=== PATIENT | female | born 1985 | race Caucasian/White ===

== ENCOUNTER → 2021-05-24 11:48 | Outpatient (CLI) | payer BC, SELFPAY ==
[2021-05-24 13:23] LABS: Add Manual Diff / Slide Review NO; Basophils Absolute Auto 100 /uL (0-100); Basophils Percent Auto 0.8 % (0-2); Eosinophils Absolute Auto 100 /uL (0-450); Hematocrit 41.2 % (36-46); Hemoglobin 14.2 g/dL (12.0-16.0); Lymphocytes Absolute Auto 2800 /uL (1100-4500); Lymphocytes Percent Auto 40.3 % (25-40); Mean Corpuscular HGB Conc 34.5 % (30-36); Mean Corpuscular Hemoglobin 30.6 PG (26-34); Mean Corpuscular Volume 88.6 fL (80-100); Monocytes Absolute Auto 600 /uL (0-900); Monocytes Percent Auto 8.2 % (3-14); Neutrophils Absolute Auto 3400 /uL (1500-7000); Neutrophils Percent Auto 48.7 % (50-75); Platelet Count 200 X10^3/uL (150-400); Red Blood Cell Count 4.65 X10^6/uL (4.0-5.2); Red Cell Distribution Width 12.9 % (11.6-14.8)
[2021-05-24 13:26] LABS: Alanine Aminotransferase 25 IU/L (<35); Albumin 4.3 g/dL (3.5-5.0); Albumin Globulin Ratio 1.5 (1.0-2.8); Alkaline Phosphatase 44 U/L (38-126); Aspartate Aminotransferase 29 IU/L (14-36); BUN Creatinine Ratio 11.9 (6-22); Bilirubin Total 0.5 mg/dL (0.2-1.3); Blood Urea Nitrogen 7 mg/dL (7-17); Calcium 9.5 mg/dL (8.4-10.2); Carbon Dioxide 23 mmol/L (22-32); Chloride 104 mmol/L (98-107); Estimated Glomerular Filt Rate > 60.0 mL/min (>60); Globulin 2.8 g/dL (1.7-4.1); Glucose 101 mg/dL (70-100); HEMOLYSIS < 15 (0-50); Potassium 3.8 mmol/L (3.4-5.1); Sodium 134 mmol/L (137-145); Total Protein 7.1 g/dL (6.3-8.2)
[2021-05-24 13:58] LABS: Thyroid Stimulating Hormone 1.81 uIU/mL (0.47-4.68)
== END ==
PROVIDERS: PCP Physician Assistant; Referring Provider Physician Assistant; Visit Provider Physician Assistant
DX: K21.9 Gastro-esophageal reflux disease without esophagitis (principal); G51.4 Facial myokymia; Z13.29 Encounter for screening for other suspected endocrine disorder
CPT/HCPCS: 36415; 80053; 84443; 85025

== ENCOUNTER → 2021-06-11 12:11 | Outpatient (CLI) | payer BC, SELFPAY ==
--- NOTE | 2021-06-11 12:12 | DI.US.S_ITS ---
PROCEDURE: US OB <= 14 WEEKS FETUS INDICATIONS: VIABILITY AND DATES OUTSIDE/PRIOR DATING DATA: Last menstrual period (LMP): Not stenosis LMP-based estimated date of delivery (CORDELL): Not applicable First dating scan (date and location): June 11, 2021 Estimated date of delivery (CORDELL) from first dating scan: January 27, 2022 The calculations are made using the ultrasound CORDELL of January 27, 2022. TECHNIQUE: Real-time scanning was performed of the fetus and maternal pelvic organs, with image documentation. Endovaginal scanning was also performed to better visualize the fetus and maternal ovaries. COMPARISON: None. FINDINGS: Embryo: Single living intrauterine identified. Yolk sac and pole are identified. [place]-rump length measures 1.0 centimeters corresponding to ultrasound estimated gestational age of 7 weeks 1 day. Gestational sac has mildly irregular contours possibly related to uterine contractions during image acquisition.. Heart rate: 136 beats per minute Maternal organs: Probable left ovary corpus luteal cyst. IMPRESSION: Single living intrauterine with ultrasound estimated gestational age of 7 weeks 1 day corresponding to ultrasound CORDELL of January 27, 2022. Dictated by: Mena Ji MD, PhD on 06/11/2021 at 14:49 Approved by: Mena Ji MD, PhD on 06/11/2021 at 15:31
== END ==
PROVIDERS: PCP Physician Assistant; Referring Provider Obstetrics & Gynecology; Visit Provider Obstetrics & Gynecology
DX: Z34.81 Encounter for supervision of other normal pregnancy, first trimester (principal); Z3A.01 Less than 8 weeks gestation of pregnancy
CPT/HCPCS: 76801; 76817

== ENCOUNTER → 2021-06-27 11:01 | Outpatient (CLI) | payer BC, SELFPAY ==
[2021-06-27 11:41] LABS: Add Manual Diff / Slide Review NO; Basophils Absolute Auto 0 /uL (0-100); Basophils Percent Auto 0.9 % (0-2); Eosinophils Absolute Auto 100 /uL (0-450); Hemoglobin 13.7 g/dL (12.0-16.0); Lymphocytes Absolute Auto 1400 /uL (1100-4500); Mean Corpuscular HGB Conc 35.2 % (30-36); Mean Corpuscular Hemoglobin 31.1 PG (26-34); Mean Corpuscular Volume 88.3 fL (80-100); Monocytes Absolute Auto 400 /uL (0-900); Monocytes Percent Auto 7.6 % (3-14); Neutrophils Absolute Auto 3800 /uL (1500-7000); Neutrophils Percent Auto 65.5 % (50-75); Platelet Count 179 X10^3/uL (150-400); Red Blood Cell Count 4.41 X10^6/uL (4.0-5.2); White Blood Cell Count 5.8 X10^3/uL (4.5-11.0)
[2021-06-27 12:22] LABS: Hepatitis B Surface Antigen NEGATIVE s/c (NEGATIVE); Rubella Antibody IgG 50.6 IU/mL (>15)
[2021-06-27 12:38] LABS: HIV 1 & 2 Ab/Ag 4th Gen Combo NEGATIVE (NEGATIVE); Hep C Virus Ab w/Reflex Quant NEGATIVE s/c (NEGATIVE)
[2021-06-27 16:06] LABS: Urine N gonorrhoeae NOT DETECTED
[2021-06-27 16:10] LABS: Urine Chlamydia NOT DETECTED
[2021-06-28 05:13] LABS: RPR Screen Non Reactive (Non Reactive); Toxoplasma gohndii IgG <3.0 IU/mL (0.0-7.1); Toxoplasma gondii IgM <3.0 AU/mL (0.0-7.9)
[2021-06-28 13:10] LABS: Varicella IgG Antibody 896 index (Immune >165)
== END ==
PROVIDERS: PCP Physician Assistant; Referring Provider Obstetrics & Gynecology; Visit Provider Obstetrics & Gynecology
DX: L08.9 Local infection of the skin and subcutaneous tissue, unspecified (principal); Z34.81 Encounter for supervision of other normal pregnancy, first trimester; Z34.80 Encounter for supervision of other normal pregnancy, unspecified trimester; Z3A.11 11 weeks gestation of pregnancy
CPT/HCPCS: 36415; 80055; 86777; 86778; 86787; 86803; 86850; 86900; 86901; 87389; 87491; 87591

== ENCOUNTER → 2021-07-25 17:07 | Outpatient (CLI) | payer BC, SELFPAY ==
[2021-07-25 18:47] LABS: Appearance Urine UA SL CLOUDY; Bilirubin Urine UA NEGATIVE (NEGATIVE); Color Urine UA YELLOW; Glucose Urine UA NEGATIVE (Negative); Ketones Urine UA NEGATIVE (NEGATIVE); Leukocyte Esterase Urine UA 3+ (NEGATIVE); Nitrite Urine UA NEGATIVE (Negative); Occult Blood Urine UA 1+ (Negative); Protein Urine UA NEGATIVE (Negative); Specific Gravity Urine UA <=1.005 (1.000-1.035); Urobilinogen Urine UA 0.2 E.U./dL (0.2)
[2021-07-25 19:02] LABS: Bacteria Urine Moderate (10-30); RBC Urine 1-5/HPF (0-5/HPF); Squamous Epithelial Cell Urine 5-10 /HPF (0-5/HPF); Transitional Epi Cells Urine 1-5/HPF (0-5/HPF); WBC Urine 30-100/HPF (0-5/HPF)
== END ==
PROVIDERS: PCP Physician Assistant; Visit Provider Obstetrics & Gynecology
DX: Z34.80 Encounter for supervision of other normal pregnancy, unspecified trimester (principal)
CPT/HCPCS: 81003; 81015; 87077; 87086; 87186

== ENCOUNTER → 2021-08-06 16:14 | Outpatient (CLI) | payer BC, SELFPAY ==
[2021-08-06 16:58] LABS: COVID19 -Nasal RAPID Negative (Negative)
== END ==
PROVIDERS: PCP Physician Assistant; Visit Provider Obstetrics & Gynecology
DX: Z20.822 Contact with and (suspected) exposure to COVID-19 (principal); Z01.812 Encounter for preprocedural laboratory examination
CPT/HCPCS: 87635

== ENCOUNTER 2021-08-07 14:02 | Day surgery (SDC) | payer BC, SELFPAY ==
--- NOTE | 2021-08-07 | PATH_ITS ---
[facility] Accession Number: [id number] . 01 Material submitted: . product of conception - PRODUCTS OF CONCEPTION . 01 Diagnosis: Products of Conception: Products of conception identified. Positive for p57 immunostaining. Ploidy studies pending to rule out molar gestation ([facility]); results will be reported as an addendum. V 08/13/2021 1449 Local . 01 Electronically signed: . Dara Arthur MD, Pathologist NPI- [id number] . 01 Gross description: . Received in a container of formalin labeled products of conception are multiple fragments of dark red decidua admixed with numerous fragments of spongy chorionic villi and admixed with cystic hydropic-appearing chorionic villi. The specimen measures 8.0 x 5.0 x 1.0 cm in aggregate dimension. No parts are grossly appreciated. Port Engineer sections of the hydropic-appearing villi are submitted in cassettes A1-A5. ([id number]) /[facility] 08/08/2021 1633 Local . 01 Microscopic: . An immunohistochemistry stain for p57 is performed to further evaluate the cells of interest, and is positive in cytotrophoblast cells and in nuclei of villous stromal cells. The control stain shows appropriate reactivity. . Block A4 p57: Positive . The differential diagnosis includes hydropic change and a partial molar gestation. Ploidy studies requested; results will be reported as an addendum. . * This test was developed and its performance characteristics determined by [facility]. It has not been cleared or approved by the U.S. Food and Drug Administration. The FDA has determined that such clearance or approval is not necessary. This test is used for clinical purposes. It should not be regarded as investigational or for research. . 01 Pathologist provided ICD-10: O02.1 . 01 CPT . 837237, I85383 Specimen Comment: A courtesy copy of this report has been sent to [phone] Performed at: [facility] [address] [place] [address], [place], [place] [id number] MD Richard Hebert MD Phone: [phone]
[2021-08-07 14:32] VITALS: BP 111/72; PULSE 100; RESP 16; TEMP 36.6; O2SAT 100
[2021-08-07 14:33] VITALS: BMI 24.1
[2021-08-07] MEDS: ACETAMINOPHEN 325 MG TABLET 975 MG PO (14:41)
[2021-08-07] MEDS: LACTATED RINGERS 1,000 ML 42 ML IV (15:09)
--- NOTE | 2021-08-07 15:32 | PM.GYNHP.1 ---
History of Present Illness History of Present Illness Reason for admission: missed Narrative: Krysta Deleon is a 36 year old CORDELL 01[birth year]22 who on her initial OB visit on 07/25/2021 was found to have a missed AB with the non-viable embryo c/w 8 weeks EGA. After consideration of all options, the patient has opted for suction curettage to remove POC. She is admitted for the procedure at this time. BT O+. [facility] Medical History Abnormal Pap smear of cervix (~2019) Acne (~2006) Bacterial vaginosis Chicken pox (~1994) Eczema (~2006) Gastric ulcer (~1987) GERD (gastroesophageal reflux disease) (~1987) Human papilloma virus (HPV) DNA test negative Irregular menstrual cycle (~1999) Ovarian cyst (~2014) Surgical History Anesthesia History of breast augmentation (~2006) History of rhinoplasty (~2007) History of tonsillectomy (~1990) Family History (Updated 06/09/21 @ 22:21 by Anju Jauregui) Father Leukemia Prostate cancer Hyperlipidemia Mental health problem Mother Melanoma Cancer Sister Thyroid disorder Grandfather History of quadriplegia Grandmother Alzheimer's disease Grandmother History of heart disease Social History marital status: number of children: 1 household members: spouse and children lives independently: Yes housing: house pets and animals: Yes (Dogs, aware of Toxoplasmosis) education level: college occupational status: employed current occupational exposures/hazards: No special vlad needs: No seatbelt use: always water heater temp set < 120 deg: Yes (will check) working smoke detector in home: Yes fire extinguisher in home: Yes carbon monox detector in home: Yes firearms in home: Yes firearms unloaded and locked: Yes do you feel safe at home: Yes Smoking Status: Former smoker second hand exposure: No alcohol intake: former substance use type: does not use during the past year weight has: decreased > 10 lbs well-balanced diet: daily or most days daily servings fruits/ve-4 caffeine: Yes (200mg daily) Type(s) of exercise: walking Meds Home Medications and Allergies Home Medications Medication Instructions Recorded Confirmed Type azelaic acid 15 % topical gel 1 applic TOPICAL BID 05/14/21 08/07/21 History Allergies Allergy/AdvReac Type Severity Reaction Status Date / Time amoxicillin Allergy Mild Verified 08/07/21 14:28 Sulfa (Sulfonamide Allergy Mild Verified 08/07/21 14:28 Antibiotics) Review of Systems Review of Systems Narrative: Problem-specific ROS positives included in HPI Exam Vital Signs (past 8 hours): - 08/07/21 14:32 Temperature 98 F Pulse Rate 100 H Respiratory Rate 16 Blood Pressure 111/72 Pulse Oximetry 100 Oxygen Delivery Method Room Air Const General: cooperative, comfortable and well developed Nutritional Appearance: average body habitus Orientation: alert and oriented x3 HENMT Head: normal to inspection Ears: hearing grossly normal bilaterally Face and sinus: face symmetric Eyes General: appearance normal, both eyes and all related structures Conjunctivae: conjunctivae normal Sclera: sclerae normal EOM: EOM intact bilaterally Neck Neck: normal visual inspection Resp Effort & Inspection: normal respiratory effort and able to speak in complete sentences Auscultation: clear to auscultation bilaterally Cardio Rate: regular rate Rhythm: regular rhythm Heart Sounds: S1 normal, S2 normal and no murmurs GI Inspection: normal to inspection Palpation: soft, no hepatosplenomegaly and No mass External Female Exam: normal external appearance Speculum Exam - Vagina: normal appearance of the vagina and normal vaginal discharge Speculum Exam - Cervix: normal appearance of the cervix and cervical os open Bimanual Exam- Vagina & Uterus: non-tender, enlarged (12 wks) and soft Bimanual Exam- Adnexa, other: normal adnexae and no masses OB/External & Speculum: cervical os open Extrem General: no calf tenderness Psych Appearance: grossly normal Mental Status: mental status grossly normal Speech and Movement: speech and movement normal Mood: congruent mood Affect: normal affect Attitude: cooperative Thought Process: normal Thought Content: normal Judgment: judgment good Assessment & Plan Assessment and plan (1) Missed with demise before 20 completed weeks of gestation: Status: Acute Plan Patient counselled re: alternatives, risks, benefits, and potential complications associated with suction curettage of the uterus. Will full understanding of the above, a written consent was executed, signed, and witnessed this date. Time Spent With Patient Time with patient: less than 30 minutes Critical Care time: I spent a total of [] minutes of critical care time on this patient's care today; this time is exclusive of procedural time.
--- NOTE | 2021-08-07 15:42 | PM.PREOP ---
Pre-operative Note COVID-19 COVID-19 status: Negative Result date/Date tested (Pos, Neg/Pending): 08/06/21 Criteria for continued procedure: Non-surgical alternatives not available or appropriate per current SOC Interval Note History & Physical reviewed/Exam performed by Physician: Yes Changes to H&P: No
--- NOTE | 2021-08-07 16:42 | SUR.OPER ---
Lithotomy on padded OR bed, head on pillow, arms secured on padded arm boards at <90 degrees abduction. Legs secured in padded yellow fins stirrups.
[2021-08-07 17:00] VITALS: BP 115/68; PULSE 78; RESP 13; TEMP 36.7; O2SAT 100
--- NOTE | 2021-08-07 17:00 | P.OP_ITS ---
Operative Date/Time/Diagnoses Date of procedure: 08/07/21 Time of procedure: 16:25 Pre-op diagnosis: Missed Post-op diagnosis: same Procedure & Clinicians Procedure: Procedures Operation Date: 08/07/21 15:30 Actual Procedure Side Surgeon p Dilation and Suction Curettage of uterus Nasim Mathias MD Indications: Krysta Deleon is a 36 year old CORDELL 01/27/[birth year]22 who on her initial OB visit on 07/25/2021 was found to have a missed AB with the non-viable embryo c/w 8 weeks EGA.? After consideration of all options, the patient has opted for suction curettage to remove POC. She is admitted for the procedure at this time.? BT O+. Surgeon: Nasim Mathias Anesthesia Type: General Operative Notes Findings: Pre-evacuation the uterus is approximately 10 weeks in size and post evacuation the uterus is 6-8 weeks in size. Abundant products of conception were removed from the uterine cavity. Closure Type: not applicable Specimen(s): products of conception Estimated blood loss (mL): 25 Blood products transfused: none Procedure in detail: With the patient under satisfactory general endotracheal anesthesia in the modified dorsal lithotomy position, the pelvis, perineum, and lower abdomen were prepped and draped in the usual fashion for D&C. A pre-surgical safety time-out was then taken in accordance with [facility] Main OR protocols. A bivalve speculum was inserted in the vagina and the cervix visualized. The anterior lip of the cervix was grasped with a single-tooth tenaculum and the endocervical canal was sequentially dilated to 10 mm. A 9 mm curved suction curette was then introduced into the endometrial cavity and suction applied. Several passes with the suction curette were required for complete evacuation of the uterus and prior to initiating the curettage itself, the patient received 10 units of Pitoc in IM along with Methergine 0.2 mg IM. Once complete evacuation of the uterine cavity was assured, the tenaculum was removed from the anterior lip of the cervix and the puncture site on the left required placement of a Allis clamp for 90 seconds to render the site completely hemostatic. At that point the speculum was removed from the vagina and the procedure terminated. The patient was then awakened from anesthesia and transferred to the PACU for a period of observation and recovery having tolerated the procedure well. Complications: none Post-operative Condition: stable Disposition: PACU Plan for aftercare: Routine postoperative care with follow-up scheduled for 2 weeks postop.
[2021-08-07 17:05] VITALS: BP 113/66; PULSE 89; RESP 15; O2SAT 100
[2021-08-07 17:10] VITALS: BP 115/64; PULSE 78; RESP 14; TEMP 36.7; O2SAT 100
[2021-08-07] MEDS: OXYCODONE IR 5 MG TABLET PO (17:22)
[2021-08-07 17:25] VITALS: BP 112/67; PULSE 75; RESP 16; O2SAT 100
[2021-08-07 17:35] VITALS: BP 116/68; PULSE 79; RESP 14; TEMP 37; O2SAT 100
== END 2021-08-07 17:53 | disposition home or self-care (01) ==
PROVIDERS: PCP Physician Assistant; Referring Provider Obstetrics & Gynecology; Visit Provider Obstetrics & Gynecology
PROC: (CPT 58120; principal; 2021-08-07 15:30)
DX: O02.1 Missed abortion (principal); Z3A.08 8 weeks gestation of pregnancy; K21.9 Gastro-esophageal reflux disease without esophagitis; E66.3 Overweight; Z68.24 Body mass index [BMI] 24.0-24.9, adult
CPT/HCPCS: 59820; J0330; J1100; J2210; J2250; J2405; J2590; J2704; J3010

== ENCOUNTER → 2021-08-26 10:06 | Outpatient (CLI) | payer BC, SELFPAY ==
[2021-08-26 13:05] LABS: HCG Quantitative /Beta subunit 16.3 mIU/mL
== END ==
PROVIDERS: PCP Physician Assistant; Referring Provider Obstetrics & Gynecology; Visit Provider Obstetrics & Gynecology
DX: O08.89 Other complications following an ectopic and molar pregnancy (principal)
CPT/HCPCS: 36415; 84702

== ENCOUNTER → 2021-09-02 17:39 | Outpatient (CLI) | payer BC, SELFPAY ==
[2021-09-02 18:28] LABS: HCG Quantitative /Beta subunit 7.8 mIU/mL
== END ==
PROVIDERS: PCP Physician Assistant; Referring Provider Obstetrics & Gynecology; Visit Provider Obstetrics & Gynecology
DX: O08.89 Other complications following an ectopic and molar pregnancy (principal)
CPT/HCPCS: 36415; 84702

== ENCOUNTER → 2021-09-16 17:33 | Outpatient (CLI) | payer BC, SELFPAY ==
[2021-09-16 18:23] LABS: HCG Quantitative /Beta subunit < 2.4 mIU/mL
== END ==
PROVIDERS: PCP Physician Assistant; Referring Provider Obstetrics & Gynecology; Visit Provider Obstetrics & Gynecology
DX: O08.89 Other complications following an ectopic and molar pregnancy (principal)
CPT/HCPCS: 36415; 84702

== ENCOUNTER → 2021-10-21 17:29 | Outpatient (CLI) | payer BC, SELFPAY ==
[2021-10-21 18:43] LABS: HCG Quantitative /Beta subunit < 2.4 mIU/mL
== END ==
PROVIDERS: PCP Physician Assistant; Referring Provider Obstetrics & Gynecology; Visit Provider Obstetrics & Gynecology
DX: O08.89 Other complications following an ectopic and molar pregnancy (principal)
CPT/HCPCS: 36415; 84702

== ENCOUNTER → 2021-12-16 06:59 | Outpatient (CLI) | payer BC, SELFPAY ==
--- NOTE | 2021-12-16 07:00 | DI.US.S_ITS ---
PROCEDURE: US PELVIC COMPLETE INDICATIONS: BLEEDING POST D C FOR MOLAR 07/2021 TECHNIQUE: Real-time scanning was performed of the pelvic organs, with image documentation. Additional endovaginal scanning was necessary due to incomplete visualization of the adnexal and endometrial structures by transabdominal scanning. COMPARISON: [facility], US, PELVIC COMPLETE, 04/13/2014, 12:44. FINDINGS: Uterus: Uterus is anteverted and normal in size at 6.4 x 4.9 x 3.8 cm. The myometrium is homogeneous. No discrete uterine fibroid is seen. The endometrium measures 6.9 mm combined thickness. Multiple anechoic cystic areas are noted within endometrium measures up to 4 x 3 x 2 mm in size. No gross solid appearing endometrial mass. Possible nabothian cyst containing internal punctate calcifications is noted within endocervical canal and measures 1.1 x 0.6 x 0.3 cm in size. Ovaries: The right ovary measures 2.8 x 1.2 x 1.2 cm, with a calculated ovarian volume of 2.1 cc. The left ovary measures 4.3 x 2.9 x 2.3 cm, with a calculated ovarian volume of 15.2 cc. The ovaries have a normal sonographic appearance. Thick walled hypoechoic structure is noted within left ovary and measures 3.2 x 2.2 x 2 cm in size with low level internal echo. No internal vascularity is seen. No adnexal masses are seen. Other: Physiologic amount of fluid is seen in lower pelvis. IMPRESSION: 1. Homogeneous myometrium. No discrete uterine fibroid. 2. Multiple tiny cystic areas are noted in the endometrium. No solid appearing endometrial mass. Jukebox Coin Collector correlation and sonographic follow-up in 4-6 weeks is recommended. 3. Possible 1.1 x 0.6 x 0.3 cm nabothian cyst within endocervical canal containing internal punctate calcifications. 4. Possible collapsing hemorrhagic cyst in left ovary measures 3.2 x 2.2 x 2 cm in size. No gross solid appearing ovarian lesion. Physiologic amount of free fluid seen in lower pelvis. We strive to produce accurate, complete, and clear reports of imaging services. To assist us in improving patient care, this report was composed using standard report templates and voice recognition software. Therefore, it may contain abnormal punctuation, insertions and/or omissions. Occasional wrong-word or sound-alike substitutions may occur. Though we review the report and make efforts to correct it, we do recommend that the report be read carefully in proper context to recognize any text inaccuracies. Dictated by: Bj Abreu M.D. on 12/16/2021 at 8:25 Approved by: Bj Abreu M.D. on 12/16/2021 at 8:31
[2021-12-16 08:42] LABS: HCG Quantitative /Beta subunit < 2.4 mIU/mL
== END ==
PROVIDERS: PCP Physician Assistant; Referring Provider Obstetrics & Gynecology; Visit Provider Obstetrics & Gynecology
DX: O02.0 Blighted ovum and nonhydatidiform mole (principal); O08.1 Delayed or excessive hemorrhage following ectopic and molar pregnancy
CPT/HCPCS: 36415; 76830; 76856; 84702

== ENCOUNTER → 2022-02-03 17:39 | Outpatient (CLI) | payer BC, SELFPAY ==
[2022-02-03 18:29] LABS: HCG Quantitative /Beta subunit < 2.4 mIU/mL
== END ==
PROVIDERS: PCP Physician Assistant; Referring Provider Obstetrics & Gynecology; Visit Provider Obstetrics & Gynecology
DX: O08.89 Other complications following an ectopic and molar pregnancy (principal)
CPT/HCPCS: 36415; 84702

== ENCOUNTER → 2022-03-04 09:42 | Outpatient (CLI) | payer BC, SELFPAY ==
[2022-03-04 11:30] LABS: Free T4, Direct Thyroxine 1.01 ng/dL (0.78-2.19); T4 Total Thyroxine 7.25 ug/dL (5.5-11.0)
[2022-03-04 11:44] LABS: Thyroid Stimulating Hormone 2.25 uIU/mL (0.47-4.68)
== END ==
PROVIDERS: PCP Physician Assistant; Referring Provider Obstetrics & Gynecology; Visit Provider Obstetrics & Gynecology
DX: N92.3 Ovulation bleeding (principal)
CPT/HCPCS: 36415; 84436; 84439; 84443

== ENCOUNTER → 2022-03-11 14:06 | Outpatient (CLI) | payer BC, SELFPAY ==
[2022-03-11 16:28] LABS: COVID19 -Nasal RAPID Negative (Negative)
== END ==
PROVIDERS: PCP Physician Assistant; Visit Provider Obstetrics & Gynecology
DX: Z01.812 Encounter for preprocedural laboratory examination (principal); Z20.822 Contact with and (suspected) exposure to COVID-19
CPT/HCPCS: 87635

== ENCOUNTER 2022-03-12 12:22 | Day surgery (SDC) | payer BC, SELFPAY ==
[2022-03-11 08:40] VITALS: BMI 22.9
[2022-03-12] VITALS (7 sets, daily range): BP systolic 107–123; BP diastolic 64–78; PULSE 75–106; RESP 13–18; TEMP 36.3–36.6; O2SAT 98–100; BMI 22.4
--- NOTE | 2022-03-12 | PATH_ITS ---
[facility] Accession Number: [id number] No. of containers..02 Tissue . 01 Material submitted: . PART A: endometrium - ENDOMETRIAL POLYP PART B: endocervix - ENDOCERVICAL POLYP . 01 Diagnosis: A. Designated As Endometrial Polyp, Biopsy: Few polypoid fragments of late secretory phase endometrium. No evidence of endometrioid intraepithelial neoplasia or malignancy. Minute fragments of benign endocervical epithelium and benign squamous epithelium. . B. Designated As Endocervical Polyp, Biopsy: Late secretory phase endometrium in association with endometrial polyp. No evidence of endometrioid intraepithelial neoplasia or malignancy. MRV 03/24/2022 1337 Local . 01 Electronically signed: . Sophia Aldana MD, Pathologist NPI- [id number] . 01 Gross description: . Part A: ENDOMETRIAL POLYP: Received in formalin are 2 fragment(s) of ferrari, soft tissue measuring 0.2 x 0.1 x 0.1 cm to 0.4 x 0.3 x 0.3 cm submitted entirely in 1 cassette(s) Part B: ENDOCERVICAL POLYP: Received in formalin is 1 fragment(s) of ferrari, soft tissue measuring 0.8 x 0.5 x 0.1 cm submitted entirely in 1 cassette(s) /ANJALI 03/24/2022 1335 Local . 01 Pathologist provided ICD-10: N84.0 . 01 CPT . 977588, [id number] Performed at: 01 [facility] [address] [place] [id number] MD Richard Hebert MD Phone: [phone]
[2022-03-12] MEDS: LACTATED RINGERS 1,000 ML 42 ML IV ×2 (13:05→14:23)
--- NOTE | 2022-03-12 13:32 | SUR.OPER ---
Patients bilateral earrings removed by patient and placed in specimen container with patient label and placed in patients belongings bag by pre-op RN.
--- NOTE | 2022-03-12 13:44 | PM.PREOP ---
Pre-operative Note COVID-19 COVID-19 status: Negative Result date/Date tested (Pos, Neg/Pending): 03/11/22 Criteria for continued procedure: Non-surgical alternatives not available or appropriate per current SOC Interval Note History & Physical reviewed/Exam performed by Physician: Yes Changes to H&P: No
--- NOTE | 2022-03-12 14:07 | SUR.OPER ---
Lithotomy on padded OR bed, head on pillow, arms secured on padded arm boards at <90 degrees abduction. Legs secured in padded yellow fins stirrups.
[2022-03-12] MEDS: SILVER NITRATE STICK 2 EACH TOP (14:26)
[2022-03-12] MEDS: ONDANSETRON 4 MG/2 ML INJ IV (14:48)
--- NOTE | 2022-03-12 14:49 | PM.GYNOP.1 ---
Operative Date/Time/Diagnoses Date of procedure: 03/12/22 Time of procedure: 14:00 Pre-op diagnosis: Intermenstrual spotting Post-op diagnosis: other (PILAR; endometrial polyp, endocervical polyp) Procedure & Clinicians Procedure: Procedures Operation Date: 03/12/22 13:30 Actual Procedure Side Surgeon p Hysteroscopy W/ polypectomy Not Applicable Nasim Mathias MD Indications: Krysta has experienced recent onset of premenstrual spotting which occurs 4-5 days prior to her regular menses.? The spotting is very light and typically dark brown with occasional light reddish discharge.? Her most recent hCG performed 12/16/2021 is negative (<2.4).? Patient denies significant pain or cramping with these episodes.? Recent pelvic ultrasound performed 12/16/2021 shows: FINDINGS:? ?? Uterus:? Uterus is anteverted and normal in size at 6.4 x 4.9 x 3.8 cm. The myometrium is homogeneous.? No discrete uterine fibroid is seen.? The endometrium measures 6.9 mm combined thickness.? Multiple anechoic cystic areas are noted within endometrium measures up to 4 x 3 x 2 mm in size.? No gross solid appearing endometrial mass.? Possible nabothian cyst containing internal punctate calcifications is noted within endocervical canal and measures 1.1 x 0.6 x 0.3 cm in size. ? Ovaries:? The right ovary measures 2.8 x 1.2 x 1.2 cm, with a calculated ovarian volume of 2.1 cc. The left ovary measures 4.3 x 2.9 x 2.3 cm, with a calculated ovarian volume of 15.2 cc. The ovaries have a normal sonographic appearance.? Thick walled hypoechoic structure is noted within left ovary and measures 3.2 x 2.2 x 2 cm in size with low level internal echo.? No internal vascularity is seen.? No adnexal masses are seen. ? Other:? Physiologic amount of fluid is seen in lower pelvis. ? ? IMPRESSION:? 1. Homogeneous myometrium.? No discrete uterine fibroid. 2. Multiple tiny cystic areas are noted in the endometrium.? No solid appearing endometrial mass.? Building Construction Ironworker correlation and sonographic follow-up in 4-6 weeks is recommended. 3. Possible 1.1 x 0.6 x 0.3 cm nabothian cyst within endocervical canal containing internal punctate calcifications. 4. Possible collapsing hemorrhagic cyst in left ovary measures 3.2 x 2.2 x 2 cm in size.? No gross solid appearing ovarian lesion.? Physiologic amount of free fluid seen in lower pelvis. After considering all options for further evaluation/treatment of her intermenstrual spotting, the patient has opted to proceed with hysteroscopy with possible biopsies and D&C to fully evaluate the endometrial cavity.? She presents today for her scheduled surgery. Surgeon: Nasim Mathias Anesthesia Type: General Operative Notes Findings: There is a small polyp present at the right tubal ostia but otherwise the endometrial cavity is unremarkable. The endometrium itself is thin but unremarkable. There is also a small endocervical polyp which was also removed during the course of the surgery. On the anterior lip of the cervix there are 3 punctate blood vessels which bleed easily and were coagulated with judicious use of monopolar current. Closure Type: not applicable Specimen(s): other (Endometrial polyp, endocervical polyp) Estimated blood loss (mL): 25 Blood products transfused: none Procedure in detail: With the patient under satisfactory general anesthesia in the modified dorsal lithotomy position, the perineum, vagina, and lower abdomen were prepped and draped in the usual manner for hysteroscopy. A pre-surgical safety time-out was then taken in accordance with [facility] [place] protocols. A bivalve speculum was inserted in the vagina and the anterior lip of the cervix was grasped with a single-tooth tenaculum. The endocervical canal was then sequentially dilated to 8 mm with Hegar dilators. Hysteroscope was introduced into the endometrial cavity and using saline as a distention medium, the endocervical canal and endometrial cavity were thoroughly inspected with the findings as noted above. The endocervical polyp was grasped with a Alvaro stone forceps, removed, and submitted as a pathologic specimen. The small polyp at the right tubal ostia was also grasped with a Alvaro stone forceps and removed and submitted as a pathologic specimen. With the removal of 2 polyps, there were no other abnormalities noted and as per the patient request no curettage was performed due to her concern over possible synechiae following the curettage. The punctate vessels on the anterior lip of the cervix were then coagulated with monopolar current and the puncture sites of the tenaculum rendered hemostatic with silver nitrate. Once complete hemostasis was assured, the speculum was removed from the vagina and the patient awakened from anesthesia. She was then transferred to the PACU for a period of observation and recovery after having tolerated procedure well. Complications: none Post-operative Condition: stable Disposition: PACU Plan for aftercare: Routine postoperative care and postop follow-up in 2 weeks
== END 2022-03-12 15:52 | disposition home or self-care (01) ==
PROVIDERS: PCP Physician Assistant; Referring Provider Obstetrics & Gynecology; Visit Provider Obstetrics & Gynecology
PROC: 0UDB8ZZ Extraction of Endometrium, Via Natural or Artificial Opening Endoscopic (ICD-10-PCS; CPT 58558; principal; 2022-03-12 13:30)
DX: N84.0 Polyp of corpus uteri (principal)
CPT/HCPCS: 58558; 81025; J1100; J2250; J2405; J2704; J3010

== ENCOUNTER → 2022-09-23 17:02 | Outpatient (CLI) | payer BC, SELFPAY ==
[2022-09-23 19:03] LABS: HCG Quantitative /Beta subunit 5089.8 mIU/mL
== END ==
PROVIDERS: PCP Physician Assistant; Referring Provider Obstetrics & Gynecology; Visit Provider Obstetrics & Gynecology
DX: Z34.81 Encounter for supervision of other normal pregnancy, first trimester (principal)
CPT/HCPCS: 36415; 84144; 84702

== ENCOUNTER → 2022-09-25 16:57 | Outpatient (CLI) | payer BC, SELFPAY ==
[2022-09-25 18:19] LABS: HCG Quantitative /Beta subunit 12554 mIU/mL
== END ==
PROVIDERS: PCP Physician Assistant; Referring Provider Obstetrics & Gynecology; Visit Provider Obstetrics & Gynecology
DX: Z34.90 Encounter for supervision of normal pregnancy, unspecified, unspecified trimester (principal)
CPT/HCPCS: 36415; 84702

== ENCOUNTER → 2022-10-05 16:59 | Outpatient (CLI) | payer BC, SELFPAY ==
[2022-10-05 18:47] LABS: HCG Quantitative /Beta subunit 94303 mIU/mL
== END ==
PROVIDERS: PCP Physician Assistant; Referring Provider Obstetrics & Gynecology; Visit Provider Obstetrics & Gynecology
DX: O20.9 Hemorrhage in early pregnancy, unspecified (principal); Z3A.00 Weeks of gestation of pregnancy not specified
CPT/HCPCS: 36415; 84702

== ENCOUNTER → 2022-10-07 12:14 | Outpatient (CLI) | payer BC, SELFPAY ==
--- NOTE | 2022-10-07 12:15 | DI.US.S_ITS ---
PROCEDURE: US OB <= 14 WEEKS FETUS INDICATIONS: BLEEDING OUTSIDE/PRIOR DATING DATA: Last menstrual period (LMP): 08/21/2022. LMP-based estimated date of delivery (CORDELL): 06/07/2023. First dating scan (date and location): 10/07/2022. Estimated date of delivery (CORDELL) from first dating scan: 05/28/2023. TECHNIQUE: Real-time scanning was performed of the fetus and maternal pelvic organs, with image documentation. COMPARISON: [facility], US, US OB <= 14 WEEKS FETUS, 07/25/2021, 17:33. FINDINGS: Embryo: Single live intrauterine is identified with crown-rump length measuring 0.8 cm corresponding to 6 weeks 5 days. Heart rate: 131 beats per minute Maternal organs: Ovaries demonstrate a left corpus luteal cyst. IMPRESSION: Single live intrauterine measuring 6 weeks 5 days. Recommend follow-up imaging at 20-22 weeks for dates and anatomy. We strive to produce accurate, complete, and clear reports of imaging services. To assist us in improving patient care, this report was composed using standard report templates and voice recognition software. Therefore, it may contain abnormal punctuation, insertions and/or omissions. Occasional wrong-word or sound-alike substitutions may occur. Though we review the report and make efforts to correct it, we do recommend that the report be read carefully in proper context to recognize any text inaccuracies. Dictated by: Farnaz Padilla M.D. on 10/07/2022 at 13:25 Approved by: Farnaz Padilla M.D. on 10/07/2022 at 13:26
== END ==
PROVIDERS: PCP Physician Assistant; Referring Provider Obstetrics & Gynecology; Visit Provider Obstetrics & Gynecology
DX: O20.9 Hemorrhage in early pregnancy, unspecified (principal); Z3A.01 Less than 8 weeks gestation of pregnancy
CPT/HCPCS: 76801; 76817

== ENCOUNTER → 2022-11-06 16:22 | Outpatient (CLI) | payer BC, SELFPAY ==
[2022-11-06 16:38] LABS: Specimen Label NATERA
== END ==
PROVIDERS: PCP Physician Assistant; Referring Provider Obstetrics & Gynecology; Visit Provider Obstetrics & Gynecology
DX: Z34.81 Encounter for supervision of other normal pregnancy, first trimester (principal)
CPT/HCPCS: 36415

== ENCOUNTER → 2022-11-25 16:34 | Outpatient (CLI) | payer BC, SELFPAY ==
[2022-11-25 17:28] LABS: Add Manual Diff / Slide Review NO; Basophils Absolute Auto 100 /uL (0-100); Basophils Percent Auto 0.7 % (0-2); Eosinophils Absolute Auto 100 /uL (0-450); Hematocrit 34.4 % (36-46); Hemoglobin 12.3 g/dL (12.0-16.0); Lymphocytes Absolute Auto 1500 /uL (1100-4500); Lymphocytes Percent Auto 22.6 % (25-40); Mean Corpuscular HGB Conc 35.9 % (30-36); Mean Corpuscular Hemoglobin 31.6 PG (26-34); Mean Corpuscular Volume 88.2 fL (80-100); Monocytes Absolute Auto 400 /uL (0-900); Monocytes Percent Auto 5.6 % (3-14); Neutrophils Absolute Auto 4700 /uL (1500-7000); Neutrophils Percent Auto 69.1 % (50-75); Platelet Count 193 X10^3/uL (150-400); Red Cell Distribution Width 13.7 % (11.6-14.8); White Blood Cell Count 6.8 X10^3/uL (4.5-11.0)
[2022-11-25 20:49] LABS: Urine N gonorrhoeae NOT DETECTED
[2022-11-25 20:53] LABS: Urine Chlamydia NOT DETECTED
[2022-11-26 07:12] LABS: RPR Screen Non Reactive (Non Reactive)
[2022-11-26 09:06] LABS: Varicella IgG Antibody 950 index (Immune >165)
[2022-11-26 12:16] LABS: Hepatitis B Surface Antigen NEGATIVE s/c (NEGATIVE); Rubella Antibody IgG 45.1 IU/mL (>15)
[2022-11-26 12:31] LABS: HIV 1 & 2 Ab/Ag 4th Gen Combo NEGATIVE (NEGATIVE); Hep C Virus Ab w/Reflex Quant NEGATIVE s/c (NEGATIVE)
== END ==
PROVIDERS: Specialist; PCP Physician Assistant; Referring Provider Obstetrics & Gynecology; Visit Provider Obstetrics & Gynecology
DX: Z34.81 Encounter for supervision of other normal pregnancy, first trimester (principal); Z3A.13 13 weeks gestation of pregnancy
CPT/HCPCS: 36415; 80055; 86787; 86803; 86850; 86900; 86901; 87389; 87491; 87591

== ENCOUNTER → 2023-01-08 07:55 | Outpatient (CLI) | payer BC, SELFPAY ==
--- NOTE | 2023-01-08 07:55 | DI.US.S_ITS ---
PROCEDURE: US OB >= 14 WEEKS FETUS INDICATIONS: ANATOMY SCAN OUTSIDE/PRIOR DATING DATA: Last menstrual period (LMP): August 21, 2022. LMP-based estimated date of delivery (CORDELL): May 28, 2023. First dating scan (date and location): October 07, 2022. Estimated date of delivery (CORDELL) from first dating scan: May 28, 2023. The calculations are made using the ultrasound CORDELL of May 28, 2023. TECHNIQUE: Real-time scanning was performed of the fetus, with image documentation and biometric measurements. Endovaginal scanning: Not performed COMPARISON: None. FINDINGS: General: A single living intrauterine gestation is present. Presentation: Vertex. Placenta: Placental position is posterior , without previa. Amniotic fluid index: 13.9 cm, normal range is 5-24 cm. Single deepest vertical pocket is 4.9 cm. heart rate: 147 beats per minute. Maternal cervical canal: 3.9 cm long. Normal lower limit is 2.5 cm. biometrics: Biparietal diameter: 5.1 cm, 21 weeks and 3 days Head circumference: 17.8 cm, 20 weeks and 2 days Abdominal circumference: 15.9 cm, 21 weeks and 0 days Femur length: 3.3 cm, 20 weeks and 1 day Clinically estimated gestational age: 20 weeks and 0 days Composite gestational age from present scan: 20 weeks and 5 days Estimated weight and percentile: 367 g, approximately 80th percentile Anatomic survey: Neuro: Ventricles are non-dilated at less than 10 mm. Cisterna magna is normal at 3-11 mm. Cerebellum is normal in size and morphology. Nuchal skin fold: Normal at less than 6 mm between 14-21 weeks gestational age. Face: Nose and lips, facial profile are normal. Spine: No evidence for spina bifida. Heart: 4-chambered heart is present, with normal ventricular outflow tracts. Diaphragm: Diaphragm is intact. Stomach: Left-sided stomach is present. Kidneys: No hydronephrosis. Normal is less than 5 mm in 2nd trimester, less than 7 mm in 3rd trimester. Cord: 3-vessel cord has orthotopic insertion. Bladder: Normal in size. Extremities: All 4 extremities identified. IMPRESSION: Single living intrauterine gestation with estimated sonographic gestational age of approximately 20 weeks and 5 days versus approximately 20 weeks and 0 days by last menstrual period. Estimated weight of approximately 367 g which correlates with the 80th percentile. Normal interval growth has occurred. Normal second-trimester anatomy screening survey. We strive to produce accurate, complete, and clear reports of imaging services. To assist us in improving patient care, this report was composed using standard report templates and voice recognition software. Therefore, it may contain abnormal punctuation, insertions and/or omissions. Occasional wrong-word or sound-alike substitutions may occur. Though we review the report and make efforts to correct it, we do recommend that the report be read carefully in proper context to recognize any text inaccuracies. Dictated by: Clifford Cain M.D. on 01/08/2023 at 10:00 Approved by: Clifford Cain M.D. on 01/08/2023 at 10:03
== END ==
PROVIDERS: PCP Physician Assistant; Referring Provider Obstetrics & Gynecology; Visit Provider Obstetrics & Gynecology
DX: Z34.82 Encounter for supervision of other normal pregnancy, second trimester (principal); Z3A.20 20 weeks gestation of pregnancy
CPT/HCPCS: 76811

== ENCOUNTER → 2023-02-19 13:24 | Outpatient (CLI) | payer BC, SELFPAY ==
[2023-02-19 15:20] LABS: Hematocrit 32.6 % (36-46); Hemoglobin 11.6 g/dL (12.0-16.0)
[2023-02-19 15:45] LABS: GTT (PREG) 1 Hour PP 50gm Dose 132 mg/dL (76-139)
== END ==
PROVIDERS: PCP Physician Assistant; Referring Provider Obstetrics & Gynecology; Visit Provider Obstetrics & Gynecology
DX: Z34.82 Encounter for supervision of other normal pregnancy, second trimester (principal); Z3A.26 26 weeks gestation of pregnancy
CPT/HCPCS: 36415; 82950; 85014; 85018

== ENCOUNTER → 2023-02-23 17:21 | Outpatient (CLI) | payer BC, SELFPAY ==
[2023-02-23 17:48] LABS: Bilirubin Urine UA NEGATIVE (NEGATIVE); Color Urine UA YELLOW; Glucose Urine UA NEGATIVE (Negative); Ketones Urine UA 3+ (NEGATIVE); Leukocyte Esterase Urine UA 3+ (NEGATIVE); Nitrite Urine UA POSITIVE (Negative); Occult Blood Urine UA 1+ (Negative); Protein Urine UA NEGATIVE (Negative); Urobilinogen Urine UA 0.2 E.U./dL (0.2)
[2023-02-23 17:56] LABS: Appearance Urine UA Cloudy; pH Urine UA 5.5 (4.5-8.0)
[2023-02-23 17:57] LABS: Bacteria Urine Many (>30); Culture Indicated Urine Specimen Cultured; RBC Urine 1-5/HPF (0-5/HPF); Squamous Epithelial Cell Urine 1-5 /HPF (0-5/HPF); WBC Urine 10-30/HPF (0-5/HPF)
== END ==
PROVIDERS: PCP Physician Assistant; Referring Provider Obstetrics & Gynecology; Visit Provider Obstetrics & Gynecology
DX: Z34.90 Encounter for supervision of normal pregnancy, unspecified, unspecified trimester (principal); R30.0 Dysuria
CPT/HCPCS: 81001; 87077; 87086; 87186

== ENCOUNTER → 2023-04-30 14:39 | Outpatient (CLI) | payer BC, SELFPAY ==
[2023-05-02 12:41] LABS: Strep Grp B PCR NEG for Grp B Strep
== END ==
PROVIDERS: PCP Physician Assistant; Visit Provider Obstetrics & Gynecology
DX: Z34.03 Encounter for supervision of normal first pregnancy, third trimester (principal); Z3A.36 36 weeks gestation of pregnancy
CPT/HCPCS: 87653

== ENCOUNTER → 2023-05-07 14:56 | Outpatient (CLI) | payer BC, SELFPAY ==
--- NOTE | 2023-05-07 14:58 | DI.US.S_ITS ---
PROCEDURE: US OB LIMITED INDICATIONS: OB growth OUTSIDE/PRIOR DATING DATA: Last menstrual period (LMP): August 21, 2022. LMP-based estimated date of delivery (CORDELL): May 28, 2023 First dating scan (date and location): October 07, 2022 Estimated date of delivery (CORDELL) from first dating scan: May 28, 2023 TECHNIQUE: Real-time scanning was performed of the fetus, with image documentation and biometric measurements. Endovaginal scanning: Not performed COMPARISON: None. FINDINGS: General: A single living intrauterine gestation is present. A single living intrauterine gestation is present. Presentation: Vertex Placenta: Placental position is posterior fundal, without previa. Amniotic fluid index: 9.0 cm, normal range is 5-24 cm. Single deepest vertical pocket is 3.3 cm. heart rate: 160 beats per minute. Maternal cervical canal: Not visualized biometrics: Biparietal diameter: 9.7 cm, 39 weeks 4 days Head circumference: 34.1 cm, 39 weeks 2 days Abdominal circumference: 34.7 cm, 38 weeks 5 days Femur length: 7.4 cm, 37 weeks 6 days Clinically estimated gestational age: 37 weeks 0 days Estimated gestational age from initial scan: 38 weeks 6 days. Estimated weight and percentile: 3562 g, 92% Other: Not applicable. IMPRESSION: 1. Single live intrauterine gestation with a composite gestational age of 38 weeks, 6 days. 2. Estimated weight percentile of 92%. Developing macrosomia cannot be excluded. We strive to produce accurate, complete, and clear reports of imaging services. To assist us in improving patient care, this report was composed using standard report templates and voice recognition software. Therefore, it may contain abnormal punctuation, insertions and/or omissions. Occasional wrong-word or sound-alike substitutions may occur. Though we review the report and make efforts to correct it, we do recommend that the report be read carefully in proper context to recognize any text inaccuracies. Dictated by: Susan Wadsworth M.D. on 05/07/2023 at 16:44 Approved by: Susan Wadsworth M.D. on 05/07/2023 at 16:46
== END ==
PROVIDERS: PCP Physician Assistant; Referring Provider Obstetrics & Gynecology; Visit Provider Obstetrics & Gynecology
DX: Z34.93 Encounter for supervision of normal pregnancy, unspecified, third trimester (principal); Z3A.38 38 weeks gestation of pregnancy
CPT/HCPCS: 76815

== ENCOUNTER 2023-05-21 10:25 | Inpatient (IN) | payer BC, SELFPAY ==
[2023-05-21] MEDS: LACTATED RINGERS 1,000 ML 100 ML IV (10:50)
[2023-05-21 11:59] LABS: Add Manual Diff / Slide Review NO; Basophils Absolute Auto 100 /uL (0-100); Basophils Percent Auto 1.1 % (0-2); Eosinophils Absolute Auto 100 /uL (0-450); Eosinophils Percent Auto 0.6 % (2-4); Hematocrit 33.1 % (36-46); Hemoglobin 11.7 g/dL (12.0-16.0); Lymphocytes Absolute Auto 2100 /uL (1100-4500); Lymphocytes Percent Auto 23.6 % (25-40); Mean Corpuscular HGB Conc 35.2 % (30-36); Mean Corpuscular Hemoglobin 32.3 PG (26-34); Mean Corpuscular Volume 91.9 fL (80-100); Monocytes Absolute Auto 800 /uL (0-900); Monocytes Percent Auto 8.7 % (3-14); Neutrophils Absolute Auto 6000 /uL (1500-7000); Platelet Count 145 X10^3/uL (150-400); Red Cell Distribution Width 13.6 % (11.6-14.8); White Blood Cell Count 9.1 X10^3/uL (4.5-11.0)
--- NOTE | 2023-05-21 12:00 | P.HPOB_ITS ---
OB HPI Date/Time Date of admission: 05/21/23 Date Patient Seen: 05/21/23 Time Patient Seen: 12:00 History of Present Condition Chief complaint: IUP, 39+0 wks EGA, AMA, GBS negative : 4 Para: 1 Estimated Date of Delivery: 05/28/23 Estimated Gestational Age (weeks): 39 Narrative: Krysta Deleon is a 37 year old admitted at 39+ 0 weeks gestational age for induction due to advanced maternal age. course is largely been uneventful with solid early dating and appropriate milestones throughout. GBS is negative. Indications Indication for induction OB: other (Advanced maternal age) History of Present care: good care Dating criteria: LMP confirmed by 1st trimester US Ultrasounds: normal 1st trimester US and normal mid trimester US Obstetrical complications: none Medical complications: none Preadmission Labs Blood type: O (+) positive -: Antibody screen: negative, GBS status: negative, HBsAG: negative, HIV: negative and RPR/VDLR: negative -: Chlamydia screen: not detected and Gonorrhea screen: not detected -: Rubella: immune and Varicella: immune HCT: 33.1 HCAB: negative PAP: Normal Cell-free DNA: Low risk male 1 hr GTT: 132 Prior (ies) History: x1 Evaluation Evaluation Baseline heart rate: 140 Variability: Moderate (11-25) monitor accelerations: Present Monitor Decelerations: Absent Contraction Frequency (minutes): 5 Uterine Contraction Intensity: Mild Category of Tracing: Reactive Status: Category l Dilation (cm): 3 Effacement (%): 80 Dilation: 3-4 cm Effacement: >/=80% station: -2 Position of cervix: mid Consistency: soft Varela score: 9 [facility] History (Updated 05/14/23 @ 15:10 by Nasim Mathias MD) Partial molar UTI (urinary tract infection) Missed with demise before 20 completed weeks of gestation Human papilloma virus (HPV) DNA test negative Bacterial vaginosis Acne (~2006) Chicken pox (~1994) Ovarian cyst (~2014) Irregular menstrual cycle (~1999) Abnormal Pap smear of cervix (~2019) GERD (gastroesophageal reflux disease) (~1987) Gastric ulcer (~1987) Surgical History (Updated 10/01/22 @ 08:42 by Rose Manrique RN) [place] teeth extracted History of dilation and curettage (08/07/21) Anesthesia History of tonsillectomy (~1990) History of rhinoplasty (~2007) History of breast augmentation (~2006) Family History (Updated 10/01/22 @ 09:00 by Rose Manrique RN) Father Leukemia Prostate cancer Hyperlipidemia Mental health problem Bipolar disorder with psychotic features Mother Melanoma Skin cancer Adopted Sister Thyroid disorder Brooke's thyroiditis Grandmother History of heart disease Grandmother Breast cancer Family/Other Developmental disability Cleft lip and cleft palate, unspecified Social History marital status: number of children: 1 household members: spouse and children lives independently: Yes caregiver/support person: Yes housing: house pets and animals: Yes (Dogs, aware of Toxoplasmosis) education level: college (bachelor's degree) occupational status: employed (patent prosecution paralegal, works from home) current occupational exposures/hazards: No special vlad needs: No travel history: recent (domestic only) seatbelt use: always water heater temp set < 120 deg: Yes working smoke detector in home: Yes fire extinguisher in home: Yes carbon monox detector in home: Yes firearms in home: Yes firearms unloaded and locked: Yes do you feel safe at home: Yes Smoking Status: Never smoker Tobacco: How many years used: 8 second hand exposure: No alcohol intake: former (occasionally when not ) substance use type: does not use during the past year weight has: decreased > 10 lbs well-balanced diet: daily or most days daily servings fruits/ve-4 caffeine: Yes (aware of 200mg limit) Type(s) of exercise: walking frequency: 3-4 times per week Meds Home Medications and Allergies Home Medications Medication Instructions Recorded Confirmed Type azelaic acid 15 % topical gel 1 applic topical BID 05/14/21 05/21/23 History omeprazole 20 mg tablet,delayed 20 mg PO DAILY 10/01/22 05/14/23 History release vitamin-ferrous sulfate tab PO 10/01/22 05/14/23 History 27 mg iron-folic acid 0.8 mg tablet breast pump (Smart Pump 3.0 Double #1 ea 04/30/23 05/14/23 Rx Electric BreastPump Lifestyle Set device) Allergies Allergy/AdvReac Type Severity Reaction Status Date / Time amoxicillin Allergy Mild Rash Verified 05/14/23 14:34 Sulfa (Sulfonamide Allergy Mild Swelling Verified 05/14/23 14:34 Antibiotics) of Lip/Tongue/Throat Review of Systems Review of Systems Narrative: Problem-specific ROS positives included in HPI OB Exam Vital signs Blood Pressure: 119/73 Pulse Rate: 100 Temperature: 97.2 F [facility] Head: normal to inspection, normocephalic and atraumatic Eyes General: appearance normal, both eyes and all related structures Resp Effort & Inspection: normal respiratory effort and able to speak in complete sentences Auscultation: clear to auscultation bilaterally Cardio Rate: regular rate Rhythm: regular rhythm Heart Sounds: S1 normal, S2 normal and no murmurs Extremities Lower extremity: Yes normal to inspection GI Inspection: normal to inspection Palpation: Yes soft and Yes no hepatosplenomegaly Uterus Location (Fundal Height): 38 Presentation: vertex Estimated Weight (lbs): 8 Objective Labs 05/21/23 11:50 Labs: Laboratory Results - last 24 hr 05/21/23 11:50 WBC 9.1 RBC 3.60 L Hgb 11.7 L Hct 33.1 L MCV 91.9 MCH 32.3 MCHC 35.2 RDW 13.6 Plt Count 145 L Neut % (Auto) 66.0 Lymph % (Auto) 23.6 L [place] % (Auto) 8.7 Eos % (Auto) 0.6 L Baso % (Auto) 1.1 Neut # (Auto) 6000 Lymph # (Auto) 2100 [place] # (Auto) 800 Eos # (Auto) 100 Baso # (Auto) 100 Assessment and Plan Assessment and Plan Assessment and Plan narrative: ASSESSMENT 1. Intrauterine , 39+ 0 weeks gestational age 2. Advanced maternal age 3. GBS negative status PLAN 1. Admit for induction and delivery 2. See admission orders
[2023-05-21] MEDS: OXYTOCIN PREMIX 30 UNIT/500 ML PLAST..BAG IV (12:20)
--- NOTE | 2023-05-21 13:43 | PM.OBPNLAB ---
Date/Time Date Patient Seen: 05/21/23 Time Patient Seen: 13:25 Pain Control Pain control: tolerating well Pelvic Exam Dilation (cm): 4 Effacement (%): 90 station: -2 Amniotic membrane status: Ruptured Comments: AROM, clear fluid Contractions Monitor mode: External Pitocin rate (mU/min): 8 Contraction frequency (min): 3 Contraction duration (min): 1 Contraction pattern: Irregular Contraction phase: Resting Contraction intensity: Mild Status status: Category l Heart Rate Baseline: 140 Monitor Accelerations: Present Monitor Decelerations: Absent Monitor Variability: Moderate Assessment and Plan Assessment: induction ongoing Plan: continuous present management Comments: Anticipate
[2023-05-21 17:49] VITALS: BP 119/73; PULSE 100; TEMP 36.2
--- NOTE | 2023-05-21 20:08 | PM.AN.REGBLK ---
Regional Block Pre-procedure Procedure: Continuous Lumbar Epidural for L&D Attending OB provider: Nasim Mathias PMH/ROS narrative: 37yo female 37W with history of partial mole x1 and miscarriage x1. Hx: No personal or family history of anesthesia problems. PSH/Anesthesia history narrative: Labor Epidural ASA Class: II Labs: Hct 33.1 % (36-46) L 05/21/23 11:50 Plt Count 145 X10^3/uL (150-400) L 05/21/23 11:50 Medications: Current Medications Generic Name Dose Route Start Last Admin Trade Name Freq PRN Reason Stop Dose Admin Carboprost Tromethamine 250 mcg 05/21/23 10:29 Carboprost 250 Mcg/Ml Ampul IM Q90M PRN Bleeding Diphenhydramine HCl 25 mg 05/21/23 20:04 Diphenhydramine 50 Mg/Ml Vial IV Q10M PRN Pruritis Ephedrine Sulfate 5 mg 05/21/23 20:04 Ephedrine 50 Mg/Ml Vial IV Q5M PRN Blood pressure decrease more than 20% of baseline. Oxytocin/Lactated Ringer's 30 unit in 500 mls @ 200 mls/hr 05/21/23 10:29 Oxytocin Premix IV CONT PRN Bleeding Protocol Tranexamic Acid 1,000 mg/ 100 mls @ 200 mls/hr 05/21/23 10:29 Sodium Chloride IV NOW PRN Bleeding Oxytocin/Lactated Ringer's 30 unit in 500 mls @ 2 mls/hr 05/21/23 10:30 05/21/23 12:20 Oxytocin Premix IV 2 milliunit/min TITRATE JIMMIE 2 mls/hr Administration Protocol 2 MILLIUNIT/MIN Lactated Ringer's 1,000 mls @ 100 mls/hr 05/21/23 10:30 05/21/23 10:50 Lactated Ringers IV 100 mls/hr CONT JIMMIE Administration FENT 2MCG/ML BUPIV 0.125% EPI 200 mcg in 100 mls @ 8 mls/hr 05/21/23 20:15 Fentanyl/Bupiv/Ns 2mcg/Ml - 0.125% EPIDURAL CONT JIMMIE Lidocaine HCl 20 ml 05/21/23 10:29 Lidocaine 1% 20 Ml INJ INTRA-OP PRN Post Delivery Methylergonovine Maleate 0.2 mg 05/21/23 10:29 Methylergonovine 0.2 Mg Tablet PO Q6HR PRN Heavy Bleeding Methylergonovine Maleate 0.2 mg 05/21/23 10:29 Methylergonovine 0.2 Mg/Ml Vial IM NOW PRN Bleeding Misoprostol 800 mcg 05/21/23 10:29 Misoprostol 200 Mcg Tablet MI NOW PRN Bleeding Misoprostol 400 mcg 05/21/23 10:29 Misoprostol 200 Mcg Tablet SL NOW PRN Bleeding Nalbuphine HCl 2.5 mg 05/21/23 20:04 Nalbuphine 20 Mg/Ml Ampul IV Q10M PRN Pruritis Naloxone HCl 0.2 mg 05/21/23 10:29 Naloxone 0.4 Mg/Ml Vial IV Q2MIN PRN Opiate Reversal Oxytocin 10 unit 05/21/23 10:29 Oxytocin 10 Unit/Ml Vial IM NOW PRN Bleeding Allergies: Allergies Allergy/AdvReac Type Severity Reaction Status Date / Time amoxicillin Allergy Mild Rash Verified 05/14/23 14:34 Sulfa (Sulfonamide Allergy Mild Swelling Verified 05/14/23 14:34 Antibiotics) of Lip/Tongue/Throat Procedure Insertion date: 05/21/23 Insertion time: 19:40 Prep/Local: betadine x3 and 1% lidocaine Interspace: L3-L4 Patient position: sitting Needle: 18 gauge [place] Loss of resistance with: saline (+Air) ALDAIR at (cm): 7 Catheter placed at SKIN (cm): 14 Catheter in SPACE (cm): 7 Insertion: No CSF, No Blood, No Paresthesia with insertion, No Paresthesia with injection and No Test dose reaction Initial Medications TEST DOSE time: 19:41 TEST DOSE: 1.5% lidocaine with epinephrine 1:200k (mL): 3 BOLUS DOSE time: 19:43 BOLUS DOSE (mL): 7 BOLUS DOSE med: other (2% Lidocaine) Infusion INFUSION: 0.125% bupivacaine and with fentanyl 2 mcg/mL Initial rate (mL/hr): 8 Subsequent interventions: 2129: Pain in the vagina. Bolus - 3ml 0.5% Bupivacaine + 2ml 2% Lidocaine + 8mcg Precedex. 0030: Rate change - 10ml/hr, 1hr limit - 22ml. 0415: Bolus - 5ml 0.5% Bupivacaine + 3ml 8.4% NaBiCarb + 8mcg Precedex. Delivery time: 431. Post-procedure Anesthesia date START: 05/21/23 Anesthesia time START: 18:55 Anesthesia date END: 05/22/23 Anesthesia time END: 04:47 Post-procedure Anesthesia Assessment: Yes CV function: HR/BP stable, Yes Resp function: RR/sat/airway adequate, Yes Post-op hydration adequate, Yes Pain control adequate, Yes Nausea & vomiting absent, Yes Temperature > 36 C and Yes Mental status appropriate
[2023-05-22] MEDS: CALCIUM CARBONATE 500 MG TAB 1000 MG PO (02:34)
--- NOTE | 2023-05-22 04:51 | P.PCNOB_ITS ---
Events: Other (Advanced maternal age) Labor & Delivery Delivery date: 05/22/23 Intrapartal Events: None Cervical ripening method: none Induction method: per pitocin protocol Delivery augmentation: rupture of membranes Delivery monitor: external FHT and external uterine Route of delivery: Episiotomy description: None L&D Laceration Description: Periurethral - 1st Degree (No repair required) Estimated blood loss (mL): 200 Anesthesia Type: Epidural Complications: None Narrative: Following a 7 minute 2nd stage, the patient delivered spontaneously over an intact perineum a vigorous and viable male infant. No shoulder dystocia or cord entanglement was noted. Skin to skin contact was initiated immediately and delayed cord clamping performed. After the umbilical port was doubly clamped and cut, a cord blood sample was obtained for routine studies. The placenta was then easily delivered with gentle cord traction and suprapubic countertraction. The cord had 3 vessels and inserted centrally into an intact placenta. Intravenous Pitocin was initiated immediately upon delivery of the placenta and post delivery bleeding was rapidly brought under control. Inspection of the perineum showed only a very superficial right-sided periurethral abrasion and no repair was required. Sponge, needle, and instrument counts were correct at the conclusion of the delivery process which was well tolerated by both mother and baby [place] Baby 1: Infant gender: Male Presentation: vertex Position: Left Occiput Anterior Placenta delivery description: Spontaneous Cord Vessel Description: 3 Vessels score (1 min): 8 score (5 min): 9 weight: 8 lb 10.521 oz Plan for aftercare: Routine care
[2023-05-22 05:11] VITALS: BP 106/67; PULSE 77; RESP 18; TEMP 36.5
[2023-05-22] MEDS: ACETAMINOPHEN 325 MG TABLET 650 MG PO (11:36)
[2023-05-23 07:04] LABS: Add Manual Diff / Slide Review NO; Basophils Absolute Auto 100 /uL (0-100); Basophils Percent Auto 0.7 % (0-2); Eosinophils Absolute Auto 200 /uL (0-450); Eosinophils Percent Auto 1.9 % (2-4); Hematocrit 33.4 % (36-46); Hemoglobin 11.5 g/dL (12.0-16.0); Lymphocytes Absolute Auto 2700 /uL (1100-4500); Lymphocytes Percent Auto 28.7 % (25-40); Mean Corpuscular HGB Conc 34.5 % (30-36); Mean Corpuscular Hemoglobin 32.1 PG (26-34); Mean Corpuscular Volume 93.2 fL (80-100); Monocytes Absolute Auto 600 /uL (0-900); Monocytes Percent Auto 6.7 % (3-14); Neutrophils Absolute Auto 5800 /uL (1500-7000); Platelet Count 125 X10^3/uL (150-400); Red Blood Cell Count 3.58 X10^6/uL (4.0-5.2); Red Cell Distribution Width 13.9 % (11.6-14.8); White Blood Cell Count 9.3 X10^3/uL (4.5-11.0)
[2023-05-23] MEDS: DOCUSATE 100 MG CAPSULE PO (07:38)
[2023-05-23] MEDS: CALCIUM CARBONATE 500 MG TAB 1000 MG PO (07:44)
--- NOTE | 2023-05-23 09:03 | P.DS_ITS ---
Discharge Providers Provider Date of admission: 05/21/23 10:25 Discharge Date: 05/23/23 Primary care physician: Aleisha Alvarado PA-C Consults: 05/21/23 10:29 Consult to Anesthesiology Urgent Comment: Consulting Provider: Nasim Mathias Reason for consultation: Epidural 05/23/23 04:49 Consult to Estate Planning Attorney Routine Comment: Discharge provider: Nasim Mathias MD Summary Hospital Course Date Patient Seen: 05/23/23 Time Patient Seen: 09:03 Diagnoses: Intrauterine gestation, 39+ 1 weeks, delivered by spontaneous vaginal Advanced maternal age Hospital Course: Krysta was admitted on the morning of 05/21/2023 at 39+ 0 weeks gestational age for Pitocin induction due to advanced maternal age. She progressed well with Pitocin augmentation and artificial rupture of membranes to deliver spontaneously on the morning of 05/22/2023 viable male with Apgars of 8/9 and a weight of 3927 g (8 lb 10.5 oz.). Both mother and baby have done well following delivery and mother has experienced prompt return of bowel and bladder function, she is ambulating independently, tolerating regular diet, and her pain is well controlled with oral pain medications. She will be discharged at this time to home in an afebrile normotensive condition after counseling regarding precautionary symptoms, limitations of activity, medications, and plans for follow-up which will be in 6 weeks. Medications at discharge will include resumption of all pre delivery medications and she will use [id number] Tylenol and/or ibuprofen for pain relief following delivery. Peripartum Data Delivery Method: Natural Vaginal Laceration Description: Periurethral - 1st Degree Episiotomy description: None complications: none [place] 1: Gender: Male Disposition of : home Status at Discharge Cognitive/behavioral status at discharge: oriented Functional status at discharge: independent ambulation Overall status at discharge: patient is progressing back to baseline Time Spent with Patient Time attestation: Total time spent providing and/or coordinating discharge services: Time spent: Less than 30 minutes Objective Labs 05/23/23 06:46 Labs: Laboratory Results - last 24 hr 05/23/23 06:46 WBC 9.3 RBC 3.58 L Hgb 11.5 L Hct 33.4 L MCV 93.2 MCH 32.1 MCHC 34.5 RDW 13.9 Plt Count 125 L Neut % (Auto) 62.0 Lymph % (Auto) 28.7 [place] % (Auto) 6.7 Eos % (Auto) 1.9 L Baso % (Auto) 0.7 Neut # (Auto) 5800 Lymph # (Auto) 2700 [place] # (Auto) 600 Eos # (Auto) 200 Baso # (Auto) 100 Exam Const General: cooperative and comfortable Nutritional Appearance: average body habitus Orientation: alert and oriented x3 HENMT Head: normal to inspection, atraumatic and abrasion Ears: hearing grossly normal bilaterally Face and sinus: face symmetric Eyes General: appearance normal, both eyes and all related structures Conjunctivae: conjunctivae normal Sclera: sclerae normal EOM: EOM intact bilaterally Neck Neck: normal visual inspection Resp Effort & Inspection: normal respiratory effort and able to speak in complete sentences GI Inspection: normal to inspection Palpation: soft and no hepatosplenomegaly External Female Exam: other (No significant bleeding noted) Extrem General: no calf tenderness Psych Appearance: grossly normal Mental Status: mental status grossly normal Speech and Movement: speech and movement normal Mood: congruent mood Affect: normal affect Attitude: cooperative Thought Process: normal Thought Content: normal Judgment: judgment good Discharge Plan Discharge Plan Patient Disposition: Home Provider Discharge Comment: Please review the written instructions you received when you were discharged from the hospital. Your follow-up visit as scheduled for 6 weeks after delivery and I look forward to seeing you then. If however in the meanwhile you have any issues, concerns, or questions, please contact the office by either by phone at [phone], or via the patient portal Discharge orders & Medications Prescriptions: Continued azelaic acid 15 % gel 1 applic topical BID (DME) breast pump [Smart Pump 3.0 Double Electric] Device See Rx Instructions .Route Qty: 1 0RF Rx Instructions: As directed vit-ferrous sulfat-FA 27 mg iron- 0.8 mg tablet PO omeprazole 20 mg tablet,delayed release (DR/EC) 20 mg PO DAILY Follow up/Referrals: Aleisha Alvarado PA-C [Primary Care Provider] - Nasim Mathias MD [Physician] - 6 Weeks (Call tomorrow to make follow up appointment in 6 weeks) Discharge Health Status Multidrug resistant organism: No MDRO Diet/Activity/Treatments Diet: Diet as Tolerated Activity: As tolerated Other treatments: [id number] Tylenol and/or ibuprofen may be used for additional pain relief. Oeju-hix-awciljf stool softeners and/or MiraLax may be used as needed for constipation. Skin/Wound/Dressing Care Report to your healthcare provider any signs of infection, such as:: chills, fever, increased pain, unusual drainage and unusual redness Dressing: N/A Visit Report/Discharge Packet Instructions: DI for Labor and Delivery, Vaginal , DI for and Nipple Soreness Discharge Data Primary Care Provider: Aleisha Alvarado
[2023-05-23 11:00] VITALS: BP 106/67; PULSE 77; RESP 18; TEMP 36.5
== END 2023-05-23 11:00 | disposition home or self-care (01) | DRG 807 ==
PROVIDERS: Admitting Provider Obstetrics & Gynecology; PCP Physician Assistant; Referring Provider Obstetrics & Gynecology; Visit Provider Obstetrics & Gynecology
DX: O80 Encounter for full-term uncomplicated delivery (principal); Z37.0 Single live birth; Z3A.39 39 weeks gestation of pregnancy
CPT/HCPCS: 36415; 59050; 59400; 85025; 86850; 86900; 86901; G0379; J0171; J2590

== ENCOUNTER → 2023-11-29 17:21 | Outpatient (CLI) | payer BC, SELFPAY ==
[2023-11-29 18:26] LABS: HCG Quantitative /Beta subunit 975.81 mIU/mL
== END ==
LOC: LAB 17:22
PROVIDERS: PCP Physician Assistant; Referring Provider Obstetrics & Gynecology; Visit Provider Obstetrics & Gynecology
DX: O20.9 Hemorrhage in early pregnancy, unspecified (principal)
CPT/HCPCS: 36415; 84702

== ENCOUNTER → 2023-12-01 17:18 | Outpatient (CLI) | payer BC, SELFPAY | LOC: LAB 17:19 | PROVIDERS: PCP Physician Assistant; Referring Provider Obstetrics & Gynecology; Visit Provider Obstetrics & Gynecology | DX: O20.9 Hemorrhage in early pregnancy, unspecified (principal) | CPT/HCPCS: 36415; 84702 ==

== ENCOUNTER → 2023-12-15 15:47 | Outpatient (CLI) | payer BC, SELFPAY ==
--- NOTE | 2023-12-15 16:00 | DI.US.S_ITS ---
PROCEDURE: US OB <= 14 WEEKS FETUS INDICATIONS: SPOTTING OUTSIDE/PRIOR DATING DATA: Last menstrual period (LMP): 10/21/2023. LMP-based estimated date of delivery (CORDELL): 07/27/2024. First dating scan (date and location): 12/15/2023. Estimated date of delivery (CORDELL) from first dating scan: 08/05/2024. TECHNIQUE: Real-time scanning was performed of the fetus and maternal pelvic organs, with image documentation. Endovaginal scanning was also performed to better visualize the fetus and maternal ovaries. COMPARISON: [facility], , US OB <= 14 WEEKS FETUS, 11/25/2022, 16:31. FINDINGS: Embryo: [place]-rump length measures 7 millimeters, consistent with 6 weeks and 4 days. Heart rate: 116 Maternal organs: Ovaries are within normal limits. Small fluid within the posterior cul-de-sac. IMPRESSION: Single live intrauterine consistent with 6 weeks and 4 days. We strive to produce accurate, complete, and clear reports of imaging services. To assist us in improving patient care, this report was composed using standard report templates and voice recognition software. Therefore, it may contain abnormal punctuation, insertions and/or omissions. Occasional wrong-word or sound-alike substitutions may occur. Though we review the report and make efforts to correct it, we do recommend that the report be read carefully in proper context to recognize any text inaccuracies. Dictated by: Laurent Meek M.D. on 12/16/2023 at 11:58 Approved by: Laurent Meek M.D. on 12/16/2023 at 12:00
== END ==
PROVIDERS: PCP Physician Assistant; Referring Provider Obstetrics & Gynecology; Visit Provider Obstetrics & Gynecology
DX: O26.851 Spotting complicating pregnancy, first trimester (principal); Z3A.01 Less than 8 weeks gestation of pregnancy
CPT/HCPCS: 76801; 76817

== ENCOUNTER 2023-12-22 15:22 | Emergency (ER) | payer BC, SELFPAY ==
[2023-12-22 15:27] VITALS: BP 147/73; PULSE 101; RESP 22; TEMP 37.2; O2SAT 100; BMI 24.1
--- NOTE | 2023-12-22 15:50 | ED_ITS ---
HPI - Headache General Chief Complaint: Headache Stated Complaint: loss of vision, headache Time Seen by Provider: 12/22/23 15:50 Mode of arrival: Ambulatory History of Present Illness HPI Narrative: Patient is a 38-year-old female history of GERD comes into the ED for evaluation of headache and blurry vision. She states that at around 12ish. she was working and was looking at a screen when she started noticing spots that appeared diffusely, states it lasts for approximately 1 hour states that she did have a headache during and after left-sided. States this has happened in the past proximally 4 years ago but never went to seek medical advice, states that she is only here now because she is approximately 7 weeks . She states that she has not having any visual disturbances now no other symptoms such as chest pain shortness breath fever chills nausea vomiting abdominal pain or any other GI/ symptoms time. No vaginal bleeding no vaginal discharge, states that she has an appointment with her OBGYN within the next few weeks. Related Data Home Medications Medication Instructions Recorded Confirmed azelaic acid 15 % topical gel 1 applic topical BID 05/14/21 09/29/23 omeprazole 20 mg tablet,delayed 20 mg PO DAILY 10/01/22 09/29/23 release vitamin-ferrous sulfate tab PO 10/01/22 09/29/23 27 mg iron-folic acid 0.8 mg tablet Allergies Allergy/AdvReac Type Severity Reaction Status Date / Time amoxicillin Allergy Mild Rash Verified 09/29/23 09:02 Sulfa (Sulfonamide Allergy Mild Swelling Verified 09/29/23 09:02 Antibiotics) of Lip/Tongue/Throat Review of Systems Review of Systems Narrative: General: Denies fever, chills, weight loss HEENT: Denies headache, eye drainage, eye irritation, head trauma, sore throat, voice change Cardiovascular: Denies any chest pain, palpitations, shortness of breath, tachycardia Respiratory: Denies any shortness of breath, cough, wheeze, stridor GI/: Denies any abdominal pain, nausea, vomiting, diarrhea, bright red blood per rectum, melanotic stools, urinary frequency, urinary retention, dysuria, hematuria MSK: Denies any joint pain, muscle pains, swelling Skin: Denies any rashes, lesions, discoloration Neuro: Positive headache, lightheadedness, dizziness, fainting, weakness Psych: Denies SI/HI Patient History Medical History (Updated 09/29/23 @ 09:29 by Nasim Mathias MD) UTI in , antepartum Intermenstrual spotting Partial molar UTI (urinary tract infection) Missed with demise before 20 completed weeks of gestation Human papilloma virus (HPV) DNA test negative Bacterial vaginosis Acne (~2006) Chicken pox (~1994) Ovarian cyst (~2014) Abnormal Pap smear of cervix (~2019) GERD (gastroesophageal reflux disease) (~1987) Gastric ulcer (~1987) Surgical History (Updated 10/01/22 @ 08:42 by Rose Manrique, RN) [place] teeth extracted History of dilation and curettage (08/07/21) Anesthesia History of tonsillectomy (~1990) History of rhinoplasty (~2007) History of breast augmentation (~2006) Family History (Updated 10/01/22 @ 09:00 by Rose Manrique, SANAZ) Father Leukemia Prostate cancer Hyperlipidemia Mental health problem Bipolar disorder with psychotic features Mother Melanoma Skin cancer Adopted Sister Thyroid disorder Brooke's thyroiditis Grandmother History of heart disease Grandmother Breast cancer Family/Other Developmental disability Cleft lip and cleft palate, unspecified Social History marital status: number of children: 1 household members: spouse and children lives independently: Yes caregiver/support person: Yes housing: house pets and animals: Yes (Dogs, aware of Toxoplasmosis) education level: college (bachelor's degree) occupational status: employed (legal office administrator, works from home) current occupational exposures/hazards: No special vlad needs: No travel history: recent (domestic only) seatbelt use: always water heater temp set < 120 deg: Yes working smoke detector in home: Yes fire extinguisher in home: Yes carbon monox detector in home: Yes firearms in home: Yes firearms unloaded and locked: Yes do you feel safe at home: Yes Smoking Status: Never smoker Tobacco: How many years used: 8 second hand exposure: No alcohol intake: former (occasionally when not ) substance use type: does not use during the past year weight has: decreased > 10 lbs well-balanced diet: daily or most days daily servings fruits/ve-4 caffeine: Yes (aware of 200mg limit) Type(s) of exercise: walking frequency: 3-4 times per week Smoking Status: Never smoker alcohol intake frequency: holidays/special occasions only Substance Use Type: does not use Exam Narrative Exam Narrative: General: Cooperative, comfortable, well-developed, not in acute distress HEENT: Normocephalic, atraumatic, PERRLA, normal sclera, eyelids normal, Neck: Active full range of motion, atraumatic Chest: Normal to inspection, negative crepitus, no overlying erythema ecchymosis Respiratory: Normal respiratory effort, not in acute respiratory distress, clear to auscultation bilaterally negative cough, wheeze, tachypnea, rhonchi, rales Cardiology: Regular rate rhythm negative gallop, murmur, rubs GI/: Normal to inspection, soft, nonrigid, no tenderness to palpation, exam deferred MSK: Full range of active range of motion of all 4 extremities, atraumatic Skin: No rashes lesions noted Neuro: Alert awake oriented x3, moves all 4 extremities spontaneously, cranial nerves intact, able to answer all questions appropriately follows commands appropriately, NIH of 0 Psych: Cooperative, negative suicidal or homicidal ideations Initial Vital Signs Initial Vital Signs: Vital Signs Temperature 99 F 12/22/23 15:27 Pulse Rate 101 H 12/22/23 15:27 Respiratory Rate 22 12/22/23 15:27 Blood Pressure 147/73 H 12/22/23 15:27 Pulse Oximetry 100 12/22/23 15:27 Oxygen Delivery Method Room Air 12/22/23 15:27 Course Orders Ordered: ED Orders 12/22/23 16:05 Basic Metabolic Panel Stat Beta HCG, Quant [HCG Quantitative /Beta subunit] Stat Complete Blood Count AUTO DIFF Stat MAG [Magnesium] Stat Discontinued Medications Acetaminophen (Acetaminophen 325 Mg Tablet) 650 mg PO NOW ONE Stop: 12/22/23 16:24 Last Admin: 12/22/23 16:38 Dose: Not Given Documented By: MPO Dexamethasone (Dexamethasone 10 Mg/Ml Vial) 10 mg IV NOW ONE Stop: 12/22/23 16:12 Last Admin: 12/22/23 16:38 Dose: Not Given Documented By: MPO Diphenhydramine HCl (Diphenhydramine 50 Mg/Ml Vial) 25 mg IV NOW ONE Stop: 12/22/23 16:12 Last Admin: 12/22/23 16:39 Dose: Not Given Documented By: MPO Sodium Chloride (Normal Saline 0.9%) 1,000 mls @ 1,000 mls/hr IV BOLUS ONE Stop: 12/22/23 17:10 Last Admin: 12/22/23 16:38 Dose: Not Given Documented By: JOANN Metoclopramide HCl (Metoclopramide 10 Mg/2 Ml Inj) 10 mg IV NOW ONE Stop: 12/22/23 16:12 Last Admin: 12/22/23 16:39 Dose: Not Given Documented By: JOANN Vital Signs Vital signs: Vital Signs - 8 hr 12/22/23 15:27 Temperature 99 F Pulse Rate 101 H Respiratory Rate 22 Blood Pressure 147/73 H Pulse Oximetry 100 Oxygen Delivery Method Room Air MDM - Headache Differential Diagnosis Differential diagnosis: Likely migraine, headache and other (electrolyte abnormality, CVA) Lab Data 12/22/23 16:05 12/22/23 16:05 Labs: Lab Results 12/22/23 Range/Units 16:05 WBC 7.0 (4.5-11.0) X10^3/uL RBC 4.23 (4.0-5.2) X10^6/uL Hgb 13.1 (12.0-16.0) g/dL Hct 37.0 (36-46) % MCV 87.3 (80-100) fL MCH 30.9 (26-34) PG MCHC 35.4 (30-36) % RDW 12.8 (11.6-14.8) % Plt Count 217 (150-400) X10^3/uL Neut % (Auto) 67.8 (50-75) % Lymph % (Auto) 23.2 L (25-40) % [place] % (Auto) 6.5 (3-14) % Eos % (Auto) 1.4 L (2-4) % Baso % (Auto) 1.1 (0-2) % Neut # (Auto) 4800 (7889-1403) /uL Lymph # (Auto) 1600 (5547-2037) /uL [place] # (Auto) 500 (0-900) /uL Eos # (Auto) 100 (0-450) /uL Baso # (Auto) 100 (0-100) /uL Sodium 134 L (137-145) mmol/L Potassium 4.0 (3.4-5.1) mmol/L Chloride 106 (98-107) mmol/L Carbon Dioxide 23 (22-32) mmol/L BUN 11 (7-17) mg/dL Creatinine 0.52 (0.52-1.04) mg/dL Estimated GFR > 60 (>60) mL/min BUN/Creatinine Ratio 21.2 (6-22) Glucose 94 (70-100) mg/dL Calcium 9.6 (8.4-10.2) mg/dL Magnesium 1.9 (1.6-2.3) mg/dL HCG, Quant 165481 mIU/mL MDM Narrative Medical decision making narrative: Patient is a 38-year-old female history of GERD currently 7 weeks states that she presented to the ED for headache along with intermittent blurry vision described as scotomas several hours prior to arrival history of this previously but never was evaluated for this. She states that she does have a headache left-sided but no visual disturbances at this time. She has not complaining of any other symptoms. No trauma no falls not on any blood thinners. 1600: Had a discussion with the radiologist in regards to safety of obtaining a CT scan in a patient who is approximately 6-7 weeks . He does state that it is a significant amount of radiation and would not recommend doing so, would recommend obtaining an MRI instead. 1605: I had a lengthy conversation with the patient in regards to workup and evaluation here in the emergency department, I informed her that her symptoms do sound highly like a migraine headache, however it is impossible for me to make that diagnosis and to rule out any other acute pathological findings suggest CVA or aneurysm without any imaging of the head, I did offer her an MRI, I informed her that this will unfortunately take awhile to obtained. She states that she does not want to wait here for a ?long time I informed her she states that she would rather get some lab work medications and to follow up with her primary care doctor if everything is normal. 1627: Patient stating that she does not want any of the IV medications just wants p.o. Tylenol, is still okay with lab draws Discharge Plan Departure Prescriptions: No Action azelaic acid 15 % gel 1 applic topical BID vit-ferrous sulfat-FA 27 mg iron- 0.8 mg tablet PO omeprazole 20 mg tablet,delayed release (DR/EC) 20 mg PO DAILY Referrals: Aleisha Alvarado PA-C [Primary Care Provider] -
[2023-12-22 16:45] LABS: Add Manual Diff / Slide Review NO; Basophils Absolute Auto 100 /uL (0-100); Basophils Percent Auto 1.1 % (0-2); Eosinophils Absolute Auto 100 /uL (0-450); Eosinophils Percent Auto 1.4 % (2-4); Hemoglobin 13.1 g/dL (12.0-16.0); Lymphocytes Absolute Auto 1600 /uL (1100-4500); Lymphocytes Percent Auto 23.2 % (25-40); Mean Corpuscular HGB Conc 35.4 % (30-36); Mean Corpuscular Hemoglobin 30.9 PG (26-34); Mean Corpuscular Volume 87.3 fL (80-100); Monocytes Absolute Auto 500 /uL (0-900); Monocytes Percent Auto 6.5 % (3-14); Neutrophils Absolute Auto 4800 /uL (1500-7000); Neutrophils Percent Auto 67.8 % (50-75); Platelet Count 217 X10^3/uL (150-400); Red Blood Cell Count 4.23 X10^6/uL (4.0-5.2); Red Cell Distribution Width 12.8 % (11.6-14.8)
[2023-12-22 16:56] LABS: BUN Creatinine Ratio 21.2 (6-22); Blood Urea Nitrogen 11 mg/dL (7-17); Calcium 9.6 mg/dL (8.4-10.2); Carbon Dioxide 23 mmol/L (22-32); Chloride 106 mmol/L (98-107); Estimated Glomerular Filt Rate > 60 mL/min (>60); Glucose 94 mg/dL (70-100); HEMOLYSIS < 15 (0-50); Magnesium 1.9 mg/dL (1.6-2.3); Sodium 134 mmol/L (137-145)
--- NOTE | 2023-12-22 17:25 | PC.NURSE ---
1633 pt 7 weeks and states that she experienced some sudden blurry vision and vision loss in both eyes that appeared like big black holes this afternoon. Pt reports that she has been dizzy intermittently over the past few days. Pt declined IV placement & all ordered medications. States that her PLATT is very mild and does not feel as thought Tylenol or other medications are necessary. Dr Vargas notified and ok'd lab draw in place of IV insertion.
[2023-12-22 18:09] LABS: HCG Quantitative /Beta subunit 143050 mIU/mL
--- NOTE | 2023-12-22 18:27 | ED_ITS ---
HPI - Headache General Chief Complaint: Headache Stated Complaint: loss of vision, headache Time Seen by Provider: 12/22/23 15:50 Related Data Home Medications Medication Instructions Recorded Confirmed azelaic acid 15 % topical gel 1 applic topical BID 05/14/21 09/29/23 omeprazole 20 mg tablet,delayed 20 mg PO DAILY 10/01/22 09/29/23 release vitamin-ferrous sulfate tab PO 10/01/22 09/29/23 27 mg iron-folic acid 0.8 mg tablet Allergies Allergy/AdvReac Type Severity Reaction Status Date / Time amoxicillin Allergy Mild Rash Verified 09/29/23 09:02 Sulfa (Sulfonamide Allergy Mild Swelling Verified 09/29/23 09:02 Antibiotics) of Lip/Tongue/Throat Patient History Medical History (Updated 12/22/23 @ 18:27 by Aaron Luke DO) UTI in , antepartum Intermenstrual spotting Partial molar UTI (urinary tract infection) Missed with demise before 20 completed weeks of gestation Human papilloma virus (HPV) DNA test negative Bacterial vaginosis Acne (~2006) Chicken pox (~1994) Ovarian cyst (~2014) Abnormal Pap smear of cervix (~2019) GERD (gastroesophageal reflux disease) (~1987) Gastric ulcer (~1987) Surgical History (Updated 10/01/22 @ 08:42 by Rose Manrique RN) [place] teeth extracted History of dilation and curettage (08/07/21) Anesthesia History of tonsillectomy (~1990) History of rhinoplasty (~2007) History of breast augmentation (~2006) Family History (Updated 10/01/22 @ 09:00 by Rose Manrique RN) Father Leukemia Prostate cancer Hyperlipidemia Mental health problem Bipolar disorder with psychotic features Mother Melanoma Skin cancer Adopted Sister Thyroid disorder Brooke's thyroiditis Grandmother History of heart disease Grandmother Breast cancer Family/Other Developmental disability Cleft lip and cleft palate, unspecified Social History marital status: number of children: 1 household members: spouse and children lives independently: Yes caregiver/support person: Yes housing: house pets and animals: Yes (Dogs, aware of Toxoplasmosis) education level: college (bachelor's degree) occupational status: employed (personal injury paralegal, works from home) current occupational exposures/hazards: No special vlad needs: No travel history: recent (domestic only) seatbelt use: always water heater temp set < 120 deg: Yes working smoke detector in home: Yes fire extinguisher in home: Yes carbon monox detector in home: Yes firearms in home: Yes firearms unloaded and locked: Yes do you feel safe at home: Yes Smoking Status: Never smoker Tobacco: How many years used: 8 second hand exposure: No alcohol intake: former (occasionally when not ) substance use type: does not use during the past year weight has: decreased > 10 lbs well-balanced diet: daily or most days daily servings fruits/ve-4 caffeine: Yes (aware of 200mg limit) Type(s) of exercise: walking frequency: 3-4 times per week Smoking Status: Never smoker alcohol intake frequency: holidays/special occasions only Substance Use Type: does not use Exam Initial Vital Signs Initial Vital Signs: Vital Signs Temperature 99 F 12/22/23 15:27 Pulse Rate 101 H 12/22/23 15:27 Respiratory Rate 22 12/22/23 15:27 Blood Pressure 147/73 H 12/22/23 15:27 Pulse Oximetry 100 12/22/23 15:27 Oxygen Delivery Method Room Air 12/22/23 15:27 Course Orders Ordered: ED Orders 12/22/23 16:05 Basic Metabolic Panel Stat Beta HCG, Quant [HCG Quantitative /Beta subunit] Stat Complete Blood Count AUTO DIFF Stat MAG [Magnesium] Stat Discontinued Medications Acetaminophen (Acetaminophen 325 Mg Tablet) 650 mg PO NOW ONE Stop: 12/22/23 16:24 Last Admin: 12/22/23 16:38 Dose: Not Given Documented By: MPO Dexamethasone (Dexamethasone 10 Mg/Ml Vial) 10 mg IV NOW ONE Stop: 12/22/23 16:12 Last Admin: 12/22/23 16:38 Dose: Not Given Documented By: MPO Diphenhydramine HCl (Diphenhydramine 50 Mg/Ml Vial) 25 mg IV NOW ONE Stop: 12/22/23 16:12 Last Admin: 12/22/23 16:39 Dose: Not Given Documented By: MPO Sodium Chloride (Normal Saline 0.9%) 1,000 mls @ 1,000 mls/hr IV BOLUS ONE Stop: 12/22/23 17:10 Last Admin: 12/22/23 16:38 Dose: Not Given Documented By: MPO Metoclopramide HCl (Metoclopramide 10 Mg/2 Ml Inj) 10 mg IV NOW ONE Stop: 12/22/23 16:12 Last Admin: 12/22/23 16:39 Dose: Not Given Documented By: JOANN Vital Signs Vital signs: Vital Signs - 8 hr 12/22/23 15:27 Temperature 99 F Pulse Rate 101 H Respiratory Rate 22 Blood Pressure 147/73 H Pulse Oximetry 100 Oxygen Delivery Method Room Air MDM - Headache Lab Data 12/22/23 16:05 12/22/23 16:05 Labs: Lab Results 12/22/23 Range/Units 16:05 WBC 7.0 (4.5-11.0) X10^3/uL RBC 4.23 (4.0-5.2) X10^6/uL Hgb 13.1 (12.0-16.0) g/dL Hct 37.0 (36-46) % MCV 87.3 (80-100) fL MCH 30.9 (26-34) PG MCHC 35.4 (30-36) % RDW 12.8 (11.6-14.8) % Plt Count 217 (150-400) X10^3/uL Neut % (Auto) 67.8 (50-75) % Lymph % (Auto) 23.2 L (25-40) % [place] % (Auto) 6.5 (3-14) % Eos % (Auto) 1.4 L (2-4) % Baso % (Auto) 1.1 (0-2) % Neut # (Auto) 4800 (7142-5740) /uL Lymph # (Auto) 1600 (3655-7268) /uL [place] # (Auto) 500 (0-900) /uL Eos # (Auto) 100 (0-450) /uL Baso # (Auto) 100 (0-100) /uL Sodium 134 L (137-145) mmol/L Potassium 4.0 (3.4-5.1) mmol/L Chloride 106 (98-107) mmol/L Carbon Dioxide 23 (22-32) mmol/L BUN 11 (7-17) mg/dL Creatinine 0.52 (0.52-1.04) mg/dL Estimated GFR > 60 (>60) mL/min BUN/Creatinine Ratio 21.2 (6-22) Glucose 94 (70-100) mg/dL Calcium 9.6 (8.4-10.2) mg/dL Magnesium 1.9 (1.6-2.3) mg/dL HCG, Quant 052078 mIU/mL Discharge Plan Departure Patient Disposition: Home Clinical Impression: Migraine Activity Restrictions/Additional Instructions: Please follow-up with your primary care doctor to obtain outpatient MRI Please read the discharge instructions sheet carefully and bring all papers to all doctor follow-up visits, as it may contain information that your doctor may want to see. Disease processes change and evolve, if your symptoms worsen or if you develop any new symptoms that are concerning to you please return for evaluation. Your evaluation today does not show any evidence of any life- threatening/serious illnesses requiring admission to the hospital or surgery. Please follow-up with your doctor for re-evaluation in approximately 1 day. Seek immediate medical attention for any worrisome symptoms. Prescriptions: No Action azelaic acid 15 % gel 1 applic topical BID vit-ferrous sulfat-FA 27 mg iron- 0.8 mg tablet PO omeprazole 20 mg tablet,delayed release (DR/EC) 20 mg PO DAILY Referrals: Aleisha Alvarado PA-C [Primary Care Provider] - Stand Alone Forms: Patient Portal/API
[2023-12-22 18:34] VITALS: BP 135/69; PULSE 99; RESP 20; TEMP 37; O2SAT 99
== END 2023-12-22 18:35 | disposition home or self-care (01) ==
PROVIDERS: Emergency Provider Student in an Organized Health Care Education/Training Program; PCP Physician Assistant
DX: R51.9 Headache, unspecified (principal); H53.8 Other visual disturbances; Z3A.01 Less than 8 weeks gestation of pregnancy
CPT/HCPCS: 36415; 80048; 83735; 84702; 85025; 99281; 99283

== ENCOUNTER → 2024-01-19 08:54 | Outpatient (CLI) | payer BC, SELFPAY ==
[2024-01-19 10:13] LABS: Add Manual Diff / Slide Review NO; Basophils Absolute Auto 0 /uL (0-100); Basophils Percent Auto 0.7 % (0-2); Eosinophils Absolute Auto 100 /uL (0-450); Eosinophils Percent Auto 2.5 % (2-4); Hematocrit 36.2 % (36-46); Hemoglobin 12.7 g/dL (12.0-16.0); Lymphocytes Absolute Auto 1400 /uL (1100-4500); Lymphocytes Percent Auto 25.8 % (25-40); Mean Corpuscular HGB Conc 35.2 % (30-36); Mean Corpuscular Hemoglobin 30.9 PG (26-34); Mean Corpuscular Volume 87.8 fL (80-100); Monocytes Absolute Auto 400 /uL (0-900); Monocytes Percent Auto 7.2 % (3-14); Neutrophils Absolute Auto 3400 /uL (1500-7000); Neutrophils Percent Auto 63.8 % (50-75); Platelet Count 184 X10^3/uL (150-400); Red Blood Cell Count 4.12 X10^6/uL (4.0-5.2); Red Cell Distribution Width 12.7 % (11.6-14.8); White Blood Cell Count 5.3 X10^3/uL (4.5-11.0)
[2024-01-19 10:20] LABS: Natera Collection Specimen Collected
[2024-01-19 14:55] LABS: Urine N gonorrhoeae NOT DETECTED
[2024-01-19 15:03] LABS: Urine Chlamydia NOT DETECTED
[2024-01-20 04:10] LABS: RPR Screen Non Reactive (Non Reactive)
[2024-01-20 09:10] LABS: Varicella IgG Antibody Reactive (Non Reactive)
[2024-01-20 15:32] LABS: Hepatitis B Surface Antigen NEGATIVE s/c (NEGATIVE); Rubella Antibody IgG 44.7 IU/mL (>15)
[2024-01-20 15:45] LABS: HIV 1 & 2 Ab/Ag 4th Gen Combo NEGATIVE (NEGATIVE); Hep C Virus Ab w/Reflex Quant NEGATIVE s/c (NEGATIVE)
== END ==
PROVIDERS: PCP Physician Assistant; Referring Provider Obstetrics & Gynecology; Visit Provider Obstetrics & Gynecology
DX: Z34.80 Encounter for supervision of other normal pregnancy, unspecified trimester (principal); Z11.3 Encounter for screening for infections with a predominantly sexual mode of transmission; Z3A.11 11 weeks gestation of pregnancy
CPT/HCPCS: 36415; 80055; 86787; 86803; 86850; 86900; 86901; 87086; 87389; 87491; 87591

== ENCOUNTER → 2024-02-16 14:56 | Outpatient (CLI) | payer BC, SELFPAY | PROVIDERS: PCP Physician Assistant; Referring Provider Obstetrics & Gynecology; Visit Provider Obstetrics & Gynecology | DX: Z36.0 Encounter for antenatal screening for chromosomal anomalies (principal) | CPT/HCPCS: 36415; 82105 ==

== ENCOUNTER → 2024-03-20 08:45 | Outpatient (CLI) | payer BC, SELFPAY ==
--- NOTE | 2024-03-20 08:46 | DI.US.S_ITS ---
PROCEDURE: US OB >= 14 WEEKS FETUS INDICATIONS: 20 wk anatomy scan OUTSIDE/PRIOR DATING DATA: Last menstrual period (LMP): 10/21/2023 LMP-based estimated date of delivery (CORDELL): 07/27/2024 First dating scan (date and location): 12/15/2023. Estimated date of delivery (CORDELL) from first dating scan: 6 weeks and 4 days. TECHNIQUE: Real-time scanning was performed of the fetus, with image documentation and biometric measurements. Endovaginal scanning: No COMPARISON: [facility], OB >= 14 WEEKS FETUS, 01/08/2023, 8:02. FINDINGS: General: A single living intrauterine gestation is present. Presentation: Breech. Placenta: Placental position is anterior , without previa. Amniotic fluid index: 15.9 cm, normal range is 5-24 cm. Single deepest vertical pocket is 4.8 cm. heart rate: 130 beats per minute. Maternal cervical canal: 4.5 cm long. Normal lower limit is 2.5 cm. biometrics: Biparietal diameter: 4.8 cm Head circumference: 18.7 cm Abdominal circumference: 15.7 cm Femur length: 3.3 cm Clinically estimated gestational age: 20 weeks and 2 days Composite gestational age from present scan: 20 weeks and 5 days Estimated weight and percentile: 369 g; 67th percentile Anatomic survey: Neuro: Ventricles are non-dilated at less than 10 mm. Cisterna magna is normal at 3-11 mm. Cerebellum is normal in size and morphology. Nuchal skin fold: Normal at less than 6 mm between 14-21 weeks gestational age. Face: Nose and lips, facial profile are normal. Spine: No evidence for spina bifida. Heart: 4-chambered heart is present, with normal ventricular outflow tracts. Diaphragm: Diaphragm is intact. Stomach: Left-sided stomach is present. Kidneys: No hydronephrosis. Normal is less than 5 mm in 2nd trimester, less than 7 mm in 3rd trimester. Cord: 3-vessel cord has orthotopic insertion. Bladder: Normal in size. Extremities: All 4 extremities identified. IMPRESSION: 1. Single live intrauterine with an estimated gestational age of 20 weeks and 5 days. 2. Normal sonographic anatomy on this scan. We strive to produce accurate, complete, and clear reports of imaging services. To assist us in improving patient care, this report was composed using standard report templates and voice recognition software. Therefore, it may contain abnormal punctuation, insertions and/or omissions. Occasional wrong-word or sound-alike substitutions may occur. Though we review the report and make efforts to correct it, we do recommend that the report be read carefully in proper context to recognize any text inaccuracies. Dictated by: Raoul Mei M.D. on 03/20/2024 at 12:44 Approved by: Raoul Mei M.D. on 03/20/2024 at 12:51
== END ==
PROVIDERS: PCP Physician Assistant; Referring Provider Obstetrics & Gynecology; Visit Provider Obstetrics & Gynecology
DX: Z34.82 Encounter for supervision of other normal pregnancy, second trimester (principal); Z3A.20 20 weeks gestation of pregnancy
CPT/HCPCS: 76811

== ENCOUNTER → 2024-05-06 10:15 | Outpatient (CLI) | payer BC, SELFPAY ==
[2024-05-06 11:13] LABS: Hematocrit 35.7 % (36-46); Hemoglobin 12.4 g/dL (12.0-16.0)
[2024-05-06 12:20] LABS: GTT (PREG) 1 Hour PP 50gm Dose 100 mg/dL (76-139)
== END ==
LOC: LAB 10:17
PROVIDERS: PCP Physician Assistant; Referring Provider Obstetrics & Gynecology; Visit Provider Obstetrics & Gynecology
DX: Z13.1 Encounter for screening for diabetes mellitus (principal); Z13.0 Encounter for screening for diseases of the blood and blood-forming organs and certain disorders involving the immune mechanism
CPT/HCPCS: 36415; 82950; 85014; 85018

== ENCOUNTER → 2024-07-11 09:01 | Outpatient (CLI) | payer BC, SELFPAY ==
[2024-07-12 10:48] LABS: Strep Grp B PCR NEG for Grp B Strep
== END ==
PROVIDERS: PCP Physician Assistant; Visit Provider Obstetrics & Gynecology
DX: Z3A.36 36 weeks gestation of pregnancy (principal); Z34.83 Encounter for supervision of other normal pregnancy, third trimester
CPT/HCPCS: 87653

== ENCOUNTER → 2024-07-21 06:56 | Outpatient (CLI) | payer BC, SELFPAY ==
--- NOTE | 2024-07-21 06:57 | DI.US.S_ITS ---
PROCEDURE: US OB LIMITED INDICATIONS: HISTORY OF MACROSOMIA IN PRIOR PREGNANCIES OUTSIDE/PRIOR DATING DATA: Last menstrual period (LMP): 10/21/2023. LMP-based estimated date of delivery (CORDELL): 07/27/2024. First dating scan (date and location): 12/15/2023. Estimated date of delivery (CORDELL) from first dating scan: 08/05/2024. The calculations are made using the working CORDELL of 08/05/2024. TECHNIQUE: Real-time scanning was performed of the fetus, with image documentation and biometric measurements. Endovaginal scanning: No COMPARISON: None. FINDINGS: General: A single living intrauterine gestation is present. Presentation: Vertex. Placenta: Placental position is anterior , without previa. Amniotic fluid index: 7.2 cm, normal range is 5-24 cm. Single deepest vertical pocket is 3.2 cm. heart rate: 155 beats per minute. Maternal cervical canal: Nonvisualized biometrics: Biparietal diameter: 9.1 cm, 37 week 0 day, 50 percentile Head circumference: 33.8 cm, 38 week 6 day, 52 percentile Abdominal circumference: 36.0 cm, 39 week 6 day, 97 percentile Femur length: 7.2 cm, 36 week 6 day, 26 percentile Clinically estimated gestational age: 37 week 6 day Composite gestational age from present scan: 38 week 1 day Estimated weight and percentile: 3579 g, 82% Other: Not applicable. IMPRESSION: Single live intrauterine consistent with 38 week 1 day gestation by current ultrasound. Appropriate growth. EFW 82 percentile, abdominal circumference 97 percentile Approved by: Justice Merritt M.D. on 07/21/2024 at 13:31
== END ==
PROVIDERS: PCP Physician Assistant; Referring Provider Obstetrics & Gynecology; Visit Provider Obstetrics & Gynecology
DX: O09.293 Supervision of pregnancy with other poor reproductive or obstetric history, third trimester (principal); Z3A.38 38 weeks gestation of pregnancy
CPT/HCPCS: 76815

== ENCOUNTER 2024-07-23 20:52 | Inpatient (IN) | payer BC, SELFPAY ==
[2024-07-23] MEDS: LACTATED RINGERS 1,000 ML 100 ML IV (21:45)
[2024-07-23 21:48] LABS: Add Manual Diff / Slide Review NO; Basophils Absolute Auto 100 /uL (0-100); Basophils Percent Auto 0.6 % (0-2); Eosinophils Absolute Auto 100 /uL (0-450); Eosinophils Percent Auto 0.8 % (2-4); Hematocrit 34.6 % (36-46); Hemoglobin 12.4 g/dL (12.0-16.0); Lymphocytes Absolute Auto 2200 /uL (1100-4500); Lymphocytes Percent Auto 21.7 % (25-40); Mean Corpuscular HGB Conc 35.8 % (30-36); Mean Corpuscular Hemoglobin 33.2 PG (26-34); Mean Corpuscular Volume 92.7 fL (80-100); Monocytes Absolute Auto 700 /uL (0-900); Monocytes Percent Auto 7.1 % (3-14); Neutrophils Absolute Auto 7100 /uL (1500-7000); Neutrophils Percent Auto 69.8 % (50-75); Platelet Count 136 X10^3/uL (150-400); Red Blood Cell Count 3.74 X10^6/uL (4.0-5.2); Red Cell Distribution Width 13.7 % (11.6-14.8); White Blood Cell Count 10.1 X10^3/uL (4.5-11.0)
--- NOTE | 2024-07-23 22:41 | PM.AN.REGBLK ---
Regional Block Pre-procedure Procedure: Continuous Lumbar Epidural for L&D Attending OB provider: Megan Doyle PMH/ROS narrative: , spontaneous labor, dilated to 8cm, not ruptured asking for epidural. Had epidurals with previous pregnancies. One worked well, one did not. ROS neg with exception of GERD with this PSH/Anesthesia history narrative: No hx of anesthesia issues. Exam narrative: Mall 2, good dentition ASA Class: II Labs: Hct 34.6 % (36-46) L 07/23/24 21:39 Plt Count 136 X10^3/uL (150-400) L 07/23/24 21:39 Medications: Current Medications Generic Name Dose Route Start Last Admin Trade Name Freq PRN Reason Stop Dose Admin Carboprost Tromethamine 250 mcg 07/23/24 21:17 Carboprost 250 Mcg/Ml Ampul IM Q90M PRN Bleeding Diphenhydramine HCl 25 mg 07/23/24 22:34 Diphenhydramine 50 Mg/Ml Vial IV Q10M PRN Pruritis Ephedrine Sulfate 10 mg 07/23/24 22:34 Ephedrine 50 Mg/Ml Vial IV Q5M PRN Blood pressure decrease more than 20% of baseline. Oxytocin/Lactated Ringer's 30 unit in 500 mls @ 200 mls/hr 07/23/24 21:17 Oxytocin Premix IV CONT PRN Bleeding Protocol Tranexamic Acid 1,000 mg/ 100 mls @ 600 mls/hr 07/23/24 21:17 Sodium Chloride IV NOW PRN Bleeding Lactated Ringer's 1,000 mls @ 100 mls/hr 07/23/24 21:30 Lactated Ringers IV 07/24/24 07:29 CONT JIMMIE FENT 2MCG/ML BUPIV 0.125% EPI 200 mcg in 100 mls @ 10 mls/hr 07/23/24 22:45 Fentanyl/Bupiv/Ns 2mcg/Ml - 0.125% EPIDURAL CONT JIMMIE Lidocaine HCl 20 ml 07/23/24 21:17 Lidocaine 1% 20 Ml INJ INTRA-OP PRN Post Delivery Methylergonovine Maleate 0.2 mg 07/23/24 21:17 Methylergonovine 0.2 Mg Tablet PO Q6HR PRN Heavy Bleeding Methylergonovine Maleate 0.2 mg 07/23/24 21:17 Methylergonovine 0.2 Mg/Ml Vial IM NOW PRN Bleeding Mineral Oil 30 ml 07/23/24 21:17 Mineral Oil 30 Ml Udc TOP PRN PRN Version Misoprostol 800 mcg 07/23/24 21:17 Misoprostol 200 Mcg Tablet ND NOW PRN Bleeding Misoprostol 400 mcg 07/23/24 21:17 Misoprostol 200 Mcg Tablet SL NOW PRN Bleeding Nalbuphine HCl 2.5 mg 07/23/24 22:34 Nalbuphine 20 Mg/Ml Ampul IV Q10M PRN Pruritis Naloxone HCl 0.2 mg 07/23/24 21:17 Naloxone 0.4 Mg/Ml Vial IV Q2MIN PRN Opiate Reversal Oxytocin 10 unit 07/23/24 21:17 Oxytocin 10 Unit/Ml Vial IM NOW PRN Bleeding Allergies: Allergies Allergy/AdvReac Type Severity Reaction Status Date / Time amoxicillin Allergy Mild Rash Verified 07/18/24 08:48 Sulfa (Sulfonamide Allergy Mild Swelling Verified 07/18/24 08:48 Antibiotics) of Lip/Tongue/Throat Procedure Insertion date: 07/23/24 Insertion time: 22:00 Prep/Local: 1% lidocaine (chlorhex skin prep, dry x 3 min) Interspace: L4-5 Patient position: sitting Needle: 17 gauge Tuohy Loss of resistance with: saline ALDAIR at (cm): 8 Catheter placed at SKIN (cm): 15 Catheter in SPACE (cm): 7 Sensory level: T10 Insertion: No CSF, No Blood, No Paresthesia with insertion, No Paresthesia with injection and No Test dose reaction Initial Medications TEST DOSE time: 22:17 BOLUS DOSE time: 22:10 BOLUS DOSE (mL): 1 (CSE, 25G spinal needle with introducer at L4-5. Neg heme/pares, +CSF a/p injection of 1/3cc of 0.75% bupiv. Epidural done separately. ) BOLUS DOSE med: 0.25% bupivacaine Infusion INFUSION: 0.125% bupivacaine and with fentanyl 2 mcg/mL Initial rate (mL/hr): 10 Post-procedure Anesthesia date START: 07/23/24 Anesthesia time START: 22:00 Anesthesia date END: 07/23/24 Anesthesia time END: 23:22 Post-procedure Anesthesia Assessment: Yes CV function: HR/BP stable, Yes Resp function: RR/sat/airway adequate, Yes Post-op hydration adequate, Yes Pain control adequate, Yes Nausea & vomiting absent, Yes Temperature > 36 C, Yes Mental status appropriate and Yes Anesthesia complications
--- NOTE | 2024-07-23 22:56 | P.HPOB_ITS ---
OB HPI Date/Time Date of admission: 07/23/24 Date Patient Seen: 07/23/24 Time Patient Seen: 22:56 History of Present Condition Chief complaint: labor CORDELL Calculator 2 Estimated Delivery Date Method Current WG Current Estimate 08/05/24 Ultrasound #1 38w 1d Other Estimates 07/27/24 LMP (Certain) 39w 3d Estimated Gestational Age (weeks): 38w1d : 5 Para: 2 Narrative: Healthy 38 yo presenting at 38w1d presenting with regular contractions. On arrival SVE 8cm/80/-2. Contractions were regular every 2 min. complicated by first-trimester roseola and possible COVID infections. Patient also has a history of partial molar with normal early ultrasound and HCGs. Patient also has a history of chronic and recurrent bacterial vaginosis. care: good care Dating criteria OB: based on 1st trimester US only (incongruent by ) Obstetrical complications: none Medical complications OB: none Preadmission Labs Last OB Lab Results: 2 Blood Type O Positive 07/23/24 21:39 Antibody Screen Negative 07/23/24 21:39 Hct 34.6 % (36-46) L 07/23/24 21:39 Hgb 12.4 g/dL (12.0-16.0) 07/23/24 21:39 Hep Bs Antigen Negative s/c (NEGATIVE) 01/19/24 09:10 Hepatitis C Antibody Negative s/c (NEGATIVE) 01/19/24 09:10 Rubella Antibody 44.7 IU/mL (>15) 01/19/24 09:10 VZV IgG Antibody Reactive (Non Reactive) 01/19/24 09:10 Glucose 1 Hr 50 gm 100 mg/dL (76-139) 05/06/24 11:43 Group B Strep (PCR) Neg for grp b strep 07/11/24 09:01 Glucose Tolerance Testin hr (100) -: Chlamydia screen: negative, Gonorrhea screen: negative and Urine: negative -: PAP smear: Normal (NIL/HPV neg on 09/29/23) Genetic Screens: Quad screen: Normal External Labs -: Urine: negative Prior (ies) Past Pregnancies Del. Date GA/Weeks Labor Lgth Wt Sex Route Outcome Anesthesia Place Delv Breastfeed Preg Comp Name 07/23/04 11 spontaneous 10/05/19 40 18 8 lb 8 oz Male vaginal live - full term ep [facility] 1 yr none Dave Pancho 08/19/22 15 molar 05/22/23 39 10 8 lb 10 oz Male vaginal live - full term e pidural IH 6 months macrosomia [place] Delivery Date: 10/05/19 Last Updated by: Britt Peñaloza R.N. Induced Delivery Date: 08/19/22 Last Updated by: Rose Manrique RN missed AB, partial molar . Required second D&C several months later Hx # Term Pregnancies: 5 Hx # Pregnancies: 0 Number of Living Children: 2 Multiple births: 0 Spontaneous abortions: 1 Evaluation Evaluation Baseline heart rate: 135 Variability: Moderate (11-25) monitor accelerations: Present Monitor Decelerations: Absent Contraction Frequency (minutes): 2 Uterine Contraction Intensity: Strong/Firm Category of Tracing: Reactive Status: Category l Dilation (cm): 10 Effacement (%): 100 Dilation: >/=5 cm Effacement: >/=80% station: 0 Position of cervix: anterior Consistency: soft Varela score: 12 PFSH Medical History (Updated 05/23/24 @ 09:12 by Nasim Mathias MD) Uterine polyp UTI in , antepartum Intermenstrual spotting Partial molar UTI (urinary tract infection) Missed with demise before 20 completed weeks of gestation Bacterial vaginosis Acne (~2006) Chicken pox (~1994) Ovarian cyst (~2014) Abnormal Pap smear of cervix (~2019) GERD (gastroesophageal reflux disease) (~1987) Gastric ulcer (~1987) Surgical History (Updated 10/01/22 @ 08:42 by Roes Manrique RN) [place] teeth extracted History of dilation and curettage (08/07/21) Anesthesia History of tonsillectomy (~1990) History of rhinoplasty (~2007) History of breast augmentation (~2006) Family History (Updated 01/04/24 @ 09:00 by Rose Manrique RN) Father Leukemia Prostate cancer Hyperlipidemia Mental health problem Bipolar disorder with psychotic features Mother Melanoma Skin cancer Adopted Sister Thyroid disorder Brooke's thyroiditis Grandmother History of heart disease Grandmother Breast cancer Family/Other Developmental disability Cleft lip and cleft palate, unspecified Social History (Updated 01/04/24 @ 09:01 by Rose Manrique RN) marital status: number of children: 2 household members: spouse and children lives independently: Yes caregiver/support person: Yes housing: house pets and animals: Yes (Dog) education level: college (bachelor's degree) occupational status: employed (litigation legal assistant, works from home) current occupational exposures/hazards: No vlad/presybeterian: [employer] special vlad needs: No travel history: over 6 months ago leisure activities: exercise and volunteer work seatbelt use: always water heater temp set < 120 deg: Yes working smoke detector in home: Yes fire extinguisher in home: Yes carbon monox detector in home: Yes firearms in home: Yes firearms unloaded and locked: Yes do you feel safe at home: Yes Tobacco: How many years used: 8 second hand exposure: No alcohol intake: former (very occasionally when not ) substance use type: does not use during the past year weight has: decreased > 10 lbs (back to within 5 lb of pre- weight) well-balanced diet: daily or most days daily servings fruits/ve or more times/day caffeine: Yes (aware of 200mg limit) eating out: 1-3 times/week Type(s) of exercise: walking frequency: 3-4 times per week duration: 30-45 minutes/day Meds Home Medications and Allergies Home Medications Medication Instructions Recorded Confirmed Type azelaic acid 15 % topical gel 1 applic topical BID 05/14/21 07/18/24 History vitamin-ferrous sulfate tab PO 10/01/22 07/18/24 History 27 mg iron-folic acid 0.8 mg tablet Allergies Allergy/AdvReac Type Severity Reaction Status Date / Time amoxicillin Allergy Mild Rash Verified 07/18/24 08:48 Sulfa (Sulfonamide Allergy Mild Swelling Verified 07/18/24 08:48 Antibiotics) of Lip/Tongue/Throat Review of Systems Review of Systems Narrative: + movement + contractions - LOF OB Exam Vital signs Blood Pressure: 122/69 Pulse Rate: 87 Narrative Exam Narrative: GEN: Healthy appearing, well-developed, breathing through contractions PSYCH: Good Judgment. AOx3. Normal memory, mood, and affect HEENT: -Head: NC/AT -Eyes: No discharge or redness CV: warm and well perfused LUNGS: breathing comfortably on RA SKIN: Warm, well perfused. No skin rashes or abnormal lesions ABD: gravid MSK: No deformities NEURO: No focal deficits Objective Labs 07/23/24 21:39 Labs: Laboratory Results - last 24 hr 07/23/24 21:39 WBC 10.1 RBC 3.74 L Hgb 12.4 Hct 34.6 L MCV 92.7 MCH 33.2 MCHC 35.8 RDW 13.7 Plt Count 136 L Neut % (Auto) 69.8 Lymph % (Auto) 21.7 L [place] % (Auto) 7.1 Eos % (Auto) 0.8 L Baso % (Auto) 0.6 Neut # (Auto) 7100 H Lymph # (Auto) 2200 [place] # (Auto) 700 Eos # (Auto) 100 Baso # (Auto) 100 Blood Type O Positive Antibody Screen Negative Assessment and Plan Assessment and Plan Assessment and Plan narrative: Healthy 38 yo presenting at 38w1d presenting with regular contractions. On arrival SVE 8cm/80/-2. # JESS: - admit to LD - TS, CBC - anesthesia consult, epidural now in place - AROM at 23:07 wtih clear fluid, FHT reassuring following - continuous monitoring - GBS negative Time-Based Coding :: [TOTAL MINUTES] spent with patient and on the chart (including review of chart, obtaining history, exam, reviewing outside data, placing orders, documenting exam and treatment plan, and counseling patient) on [DATE].
[2024-07-23] MEDS: OXYTOCIN PREMIX 30 UNIT/500 ML PLAST..BAG 200 UNIT IV (23:23)
--- NOTE | 2024-07-23 23:38 | P.PCNOB_ITS ---
Labor & Delivery Delivery date: 07/23/24 Delivery Time: 23:22 Intrapartal Events: None Cervical ripening method: none Induction method: none Delivery augmentation: rupture of membranes (clear fluid ) Delivery monitor: external FHT Route of delivery: L&D Laceration Description: Superficial (shallow hemostatic laceration adjacent to clitoris ) Estimated blood loss (mL): 250 Anesthesia Type: Epidural Narrative: PROCEDURE: 38 yo at 38w1d presented wtih regular contractions and was admitted to Labor and Delivery. The patient progressed and achieved complete cervical dilation at 22:38. A bulging bag was present. AROM occured at 23:07 with clear fluid. Pain was controlled with epidural. The patient began pushing and delivered a viable male with APGARs 8/9 at 23:22 via out of JOSIANE. The cord was cut and clamped after it stopped after a 60 second delay. The placenta delivered with gentle cord traction, and appeared complete. The perineum and vagina were inspected with a shallow hemostatic laceration adjacent to clitoris which was hemostatic and did not require repair Needle and sponge counts were correct.? The vagina was inspected and no items were left in situ. Krysta was doing well with baby erin Agarwal. PREPROCEDURE DIAGNOSIS: Intrauterine at 38ww1d GBS negative RH negative POSTPROCEDURE DIAGNOSIS: Intrauterine at 38w1d, delivered Same as preprocedure [place] Baby 1: gender: Male Presentation: vertex Position: Right Occiput Anterior Placenta delivery description: Spontaneous Cord Vessel Description: 3 Vessels score (1 min): 8 score (5 min): 9 Plan for aftercare: Routine care
[2024-07-23 23:55] VITALS: BP 122/69; PULSE 87
[2024-07-24] MEDS: CALCIUM CARBONATE 500 MG TAB 1000 MG PO (02:40)
[2024-07-24] MEDS: ACETAMINOPHEN 325 MG TABLET 650 MG PO (04:01)
--- NOTE | 2024-07-24 07:07 | PM.OBDS.1 ---
Discharge Providers Provider Date of admission: 07/23/24 20:52 Discharge Date: 07/24/24 Primary care physician: Aleisha Alvarado PA-C Consults: 07/23/24 21:17 Consult to Anesthesiology Urgent Comment: Consulting Provider: Anesthesiologist Reason for consultation: Epidural 07/25/24 00:02 Consult to [employer] Press Operator Routine Comment: Discharge provider: Megan Doyle MD Summary Hospital Course Date Patient Seen: 07/24/24 Time Patient Seen: 07:00 Hospital Course: 38 yo at 38w1d presented wtih regular contractions and was admitted to Labor and Delivery. The patient progressed and achieved complete cervical dilation at 22:38. A bulging bag was present. AROM occured at 23:07 with clear fluid. Pain was controlled with epidural. The patient began pushing and delivered a viable male infant with APGARs 8/9 at 23:22 via out of JOSIANE. The cord was cut and clamped after it stopped after a 60 second delay. The placenta delivered with gentle cord traction, and appeared complete. The perineum and vagina were inspected with a shallow hemostatic laceration adjacent to clitoris which was hemostatic and did not require repair PP she is doing well. She is voided and pain is well controlled. She is without difficulty Peripartum Data Delivery Method: Natural Vaginal Laceration Description: Superficial (adjacent to clitoris ) complications: none Status at Discharge Cognitive/behavioral status at discharge: oriented Functional status at discharge: independent ambulation Overall status at discharge: patient is back to baseline Time Spent with Patient Time attestation: Total time spent providing and/or coordinating discharge services: Time spent: Less than 30 minutes Objective Labs 07/23/24 21:39 Labs: Laboratory Results - last 24 hr 07/23/24 21:39 WBC 10.1 RBC 3.74 L Hgb 12.4 Hct 34.6 L MCV 92.7 MCH 33.2 MCHC 35.8 RDW 13.7 Plt Count 136 L Neut % (Auto) 69.8 Lymph % (Auto) 21.7 L [place] % (Auto) 7.1 Eos % (Auto) 0.8 L Baso % (Auto) 0.6 Neut # (Auto) 7100 H Lymph # (Auto) 2200 [place] # (Auto) 700 Eos # (Auto) 100 Baso # (Auto) 100 Blood Type O Positive Antibody Screen Negative Exam Vital Signs (past 8 hours): - 07/23/24 23:55 Pulse Rate 87 Blood Pressure 122/69 Narrative Exam Narrative: GEN: Healthy appearing, well-developed, NAD. PSYCH: Good Judgment. AOx3. Normal memory, mood, and affect HEENT: -Head: NC/AT -Eyes: No discharge or redness CV: warm and well perfused LUNGS: breathing comfortably on RA SKIN: Warm, well perfused. No skin rashes or abnormal lesions ABD: fundus firm below umbilicus, non-tender MSK: No deformities NEURO: No focal deficits Discharge Plan Discharge Plan Patient Disposition: Home Discharge orders & Medications Prescriptions: Continued azelaic acid 15 % gel 1 applic topical BID vit-ferrous sulfat-FA 27 mg iron- 0.8 mg tablet PO Follow up/Referrals: Aleisha Alvarado PA-C [Primary Care Provider] - Nasim Mathias MD [Physician] - (WednesdaySeptember 06 at 11:00) Visit Report/Discharge Packet Stand Alone Forms: Discharge: Care, Patient Portal/API, Stroke Signs & Symptoms Discharge Data Primary Care Provider: Aleisha Alvarado
[2024-07-24] MEDS: IBUPROFEN 600 MG TABLET PO (08:11)
[2024-07-24] MEDS: DOCUSATE 100 MG CAPSULE PO (09:15)
[2024-07-24] MEDS: PRENATAL VIT,CALC/IRON/FOLIC 1 TABLET 1 TAB PO (09:15)
== END 2024-07-24 20:55 | disposition home or self-care (01) | DRG 807 ==
PROVIDERS: Admitting Provider Family Medicine; PCP Physician Assistant; Referring Provider Family Medicine; Visit Provider Family Medicine
DX: O80 Encounter for full-term uncomplicated delivery (principal); Z37.0 Single live birth; Z3A.38 38 weeks gestation of pregnancy
CPT/HCPCS: 36415; 59050; 76815; 85025; 86850; 86900; 86901; G0379; J2590